=== PATIENT | female | born 1960 | race Caucasian/White ===

== ENCOUNTER 2017-05-20 13:31 | Emergency (ER) | payer OTHER ==
[~2017-05-20] VITALS: Ht 157.5 cm; Wt 64.5 kg
[~2017-05-20 13:31] MED LIST: ALBU1AER INH; BENT20TA PO; EFIN1SOL; ESCI5TAB PO; ESTR1TAB PO; GABA300C3 PO; HEPATITIS MED PO; HYDR-2768 PO; IPRAAER IN; LOTRCRE TOP; METO25CR PO; OMEP20TA PO; PROM25TA5 PO; RIFA550 PO; SERO100T PO; TEMA15CA PO; ULTR50TA PO; ZOLP10TA3 PO
[2017-05-20 13:35] VITALS: BP 108/63; PULSE 76; RESP 14; TEMP 98.2; O2SAT 95
[2017-05-20] MEDS ORDERED: METO50TA11 PO (13:54)
[2017-05-20] MEDS ORDERED: OMEP20TA PO (13:54)
[2017-05-20] MEDS ORDERED: QUET1TAB8 PO (13:54)
[2017-05-20] MEDS ORDERED: LORA-373 PO (13:54)
[2017-05-20] MEDS ORDERED: SERO25TA PO (13:54)
[2017-05-20] MEDS ORDERED: TRAM50TA PO (13:54)
[2017-05-20] MEDS ORDERED: MORP1TAB25 PO (13:54)
[2017-05-20] MEDS ORDERED: LISI2.5T3 PO (13:54)
[2017-05-20] MEDS ORDERED: HYDR25TA5 PO (13:54)
[2017-05-20] MEDS ORDERED: GABA600T PO (13:54)
[2017-05-20] MEDS ORDERED: XIFA550T4 PO (13:54)
[2017-05-20] MEDS ORDERED: ATOR10TA15 PO (13:54)
[2017-05-20] MEDS ORDERED: TEMA30CA PO (13:54)
[2017-05-20] MEDS ORDERED: ESCI20TA PO (13:54)
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
== END 2017-05-20 15:35 | disposition home or self-care (01) ==
LOC: PHEFT 13:31
DX: S16.1XXA Strain of muscle, fascia and tendon at neck level, initial encounter (principal); S39.012A Strain of muscle, fascia and tendon of lower back, initial encounter; G89.29 Other chronic pain; M79.7 Fibromyalgia; K74.60 Unspecified cirrhosis of liver; I10 Essential (primary) hypertension; E78.00 Pure hypercholesterolemia, unspecified; J44.9 Chronic obstructive pulmonary disease, unspecified; G47.30 Sleep apnea, unspecified; F17.210 Nicotine dependence, cigarettes, uncomplicated; V49.50XA Passenger injured in collision with unspecified motor vehicles in traffic accident, initial encounter; Y93.89 Activity, other specified; Y92.410 Unspecified street and highway as the place of occurrence of the external cause
CPT/HCPCS: 70450; 72110; 72125; 99285

== ENCOUNTER 2017-12-18 23:58 | Inpatient (IN) | payer OTHER, MEDICAID, MEDICARE ==
[~2017-12-18] VITALS: Ht 157.5 cm; Wt 81.7 kg
[~2017-12-18 23:58] MED LIST changes: -ALBU1AER INH; +ATOR10TA15 PO; -BENT20TA PO; -EFIN1SOL; +ESCI20TA PO; -ESCI5TAB PO; -ESTR1TAB PO; -GABA300C3 PO; +GABA600T PO; -HEPATITIS MED PO; -HYDR-2768 PO; +HYDR25TA5 PO; -IPRAAER IN; +LISI2.5T3 PO; +LORA0.5T PO; -LOTRCRE TOP; +METO1TAB9 PO; -METO25CR PO; +MORP1TAB25 PO; -OMEP20TA PO; +OMEP20TA93 PO; -PROM25TA5 PO; +QUET1TAB8 PO; -RIFA550 PO; -SERO100T PO; -TEMA15CA PO; +TEMA30CA PO; +TRAM50TA PO; -ULTR50TA PO; +XIFA550T4 PO; -ZOLP10TA3 PO
[2017-12-19] VITALS (18 sets, daily range): BP systolic 77–155; BP diastolic 45–76; PULSE 75–128; RESP 14–24; TEMP 97.6–103; O2SAT 91–98
[2017-12-19] MEDS ORDERED: LEVOFLOXACIN 750 MG PREMIX INJ 150 ML IV ONE (00:30)
[2017-12-19] MEDS ORDERED: SODIUM CHLOR 0.9% 1000 ML INJ 1,000 ML IV ONE ×2 (00:30→17:45)
[2017-12-19] MEDS ORDERED: ACETAMINOPHEN 650 MG SUPP RECTAL ONE (00:30)
[2017-12-19] MEDS ORDERED: NALOXONE HCL 0.4 MG/ML AMP IV PUSH ONE ×2 (00:45)
--- NOTE | 2017-12-19 00:53 | RADRPT ---
EXAM DATE/TIME: 12/19/2017 00:37 [facility] COMPARISON: CHEST SINGLE AP, May 09, 2015, 9:11. INDICATIONS : Shortness of breath, Weakness MEDICAL HISTORY : Hepatitis C. Chronic obstructive pulmonary disease. Cirrhosis. Fibromylagia, GERD SURGICAL HISTORY : Hysterectomy. Tubal ligation. ENCOUNTER: Initial ACUITY: 1 day PAIN SCORE: 8/10 LOCATION: Bilateral chest FINDINGS: The heart size is normal. The right hilar region appears prominent. The lungs appear otherwise clear. No effusion is seen. CONCLUSION: Prominence of the right hilar region. This could be from a right perihilar consolidation. This area c ould be more completely evaluated with a CT examination of the chest. Hermes Samuels MD on December 19, 2017 at 0:46 Board Certified Radiologist. This report was verified electronically.
[2017-12-19 00:59] LABS: AUTOMATED NEUTROPHIL # 2.9 TH/MM3 (1.8-7.7); BASOPHIL % 0.6 % (0.0-2.0); EOSINOPHIL % 0.3 % (0.0-4.0); HEMATOCRIT 36.6 % (35.0-46.0); HEMOGLOBIN 11.8 GM/DL (11.6-15.3); LYMPH % 9.1 % (9.0-44.0); LYMPHOCYTE # 0.3 TH/MM3 (1.0-4.8); MEAN CELL VOLUME 78.3 FL (80.0-100.0); MEAN CORPUSCULAR HEMOGLOBIN 25.3 PG (27.0-34.0); MEAN CORPUSCULAR HGB CONC 32.3 % (32.0-36.0); MEAN PLATELET VOLUME 8.5 FL (7.0-11.0); MONO % 1.6 % (0.0-8.0); MONOCYTE # 0.1 TH/MM3 (0-0.9); NEUT % 88.4 % (16.0-70.0); PLATELET COUNT 126 TH/MM3 (150-450); RED BLOOD COUNT 4.68 MIL/MM3 (4.00-5.30); RED CELL DISTRIBUTION WIDTH 15.5 % (11.6-17.2); WHITE BLOOD COUNT 3.3 TH/MM3 (4.0-11.0)
[2017-12-19 01:38] LABS: LACTIC ACID SEPSIS PROTOCOL 3.1 mmol/L (0.4-2.0)
[2017-12-19 01:43] LABS: ALBUMIN 3.7 GM/DL (3.4-5.0); ALT (GPT) 19 U/L (10-53); AST (GOT) 34 U/L (15-37); BICARBONATE 28.4 MEQ/L (21.0-32.0); BLOOD UREA NITROGEN 11 MG/DL (7-18); CHLORIDE 100 MEQ/L (98-107); CREATININE 0.95 MG/DL (0.50-1.00); GLOMERULAR FILTRATION RATE 61 ML/MIN (>89); GLUCOSE,RANDOM 98 MG/DL (74-106); LIPASE 66 U/L (73-393); SODIUM (NA) 136 MEQ/L (136-145)
[2017-12-19 01:46] LABS: ALKALINE PHOSPHATASE 77 U/L (45-117); TOTAL BILIRUBIN ADULT 0.3 MG/DL (0.2-1.0); TOTAL PROTEIN 7.1 GM/DL (6.4-8.2)
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
[2017-12-19] MEDS ORDERED: IBUPROFEN 600 MG TAB PO PRN (03:45)
[2017-12-19] MEDS ORDERED: Vancomycin Consult Pharmacy 1 EA OTHER SCH (03:45)
[2017-12-19] MEDS ORDERED: VANCOMYCIN 1 GM/200 ML INJ 200 ML IV SCH (03:45)
[2017-12-19] MEDS ORDERED: BISACODYL 10 MG SUPP RECTAL PRN (03:45)
[2017-12-19] MEDS ORDERED: SODIUM CHLORIDE 0.9% FLUSH 10 ML FLUSH IV FLUSH PRN (03:45)
[2017-12-19] MEDS ORDERED: MAGNESIUM HYDROXIDE SUSP 30 ML CUP PO PRN (03:45)
[2017-12-19] MEDS ORDERED: LACTULOSE SYRUP 20 GM/30 ML CUP PO PRN (03:45)
[2017-12-19] MEDS ORDERED: SENNOSIDES 8.6 MG TAB PO PRN (03:45)
[2017-12-19] MEDS ORDERED: NALOXONE HCL 0.4 MG/ML AMP IV PUSH PRN ×3 (03:45→17:45)
[2017-12-19] MEDS ORDERED: ONDANSETRON HCL 4 MG/2 ML VIAL IVP PRN (03:45)
[2017-12-19 04:10] LABS: BILIRUBIN, URINE NEG (NEG); BLOOD, URINE NEG (NEG); GLUCOSE,URINE NEG (NEG); HYALINE CAST, URINE 13 /lpf (RARE); KETONE, URINE NEG (NEG); MUCUS URINE FEW /lpf (OCC); NITRITE,URINE NEG (NEG); PH, URINE 6.5 (5.0-8.5); URINE COLOR YELLOW (YELLW/STRAW); URINE LEUKOCYTE ESTERASE NEG (NEG)
[2017-12-19] MEDS: SODIUM CHLOR 0.9% 1000 ML INJ 1,000 ML IV SCH ×3 (04:25→23:42)
[2017-12-19] MEDS: PIPERACIL-TAZO 4.5 GM PREMIX 100 ML IV SCH ×3 (04:26→18:00)
[2017-12-19] MEDS ORDERED: VANCOMYCIN 1,500 MG/NS 500 ML IV ONE ×2 (05:00)
[2017-12-19] MEDS: DOCUSATE SODIUM 50 MG/SENNA 8.6 MG TAB PO SCH ×2 (09:00→20:28)
[2017-12-19] MEDS: METOPROLOL SUCCINATE 50 MG EXTENDED RELEASE TAB PO SCH (09:00)
[2017-12-19] MEDS: SODIUM CHLORIDE 0.9% FLUSH 10 ML FLUSH IV FLUSH SCH ×2 (09:00→20:27)
[2017-12-19] MEDS ORDERED: LISINOPRIL 5 MG TAB PO SCH (09:00)
[2017-12-19] MEDS ORDERED: HYDROCHLOROTHIAZIDE 25 MG TAB PO SCH (09:00)
[2017-12-19] MEDS: ATORVASTATIN 10 MG TAB PO SCH (09:34)
[2017-12-19] MEDS: PANTOPRAZOLE SOD 20 MG DELAYED RELEASE TAB PO SCH (09:34)
[2017-12-19] MEDS: RIFAXIMIN 550 MG TAB PO SCH ×2 (09:34→20:25)
[2017-12-19] MEDS ORDERED: ASPIRIN EC 81 MG TABEC PO ONE (11:00)
--- NOTE | 2017-12-19 11:03 | HHI.HP ---
[facility] Laurent Rueda M.D. Admission Diagnosis Sepsis Diagnoses: Chief Complaint: Shortness of breath Travel History International Travel<30 Days: No Contact w/Intl Traveler <30 Da: No Traveled to Known Affected Are: No History of Present Illness Patient seen this morning around 9 AM. 57-year-old female with a history of hypertension, hyperlipidemia, COPD, tobacco use, cirrhosis, chronic back pain on opioids who presented obtunded last night, with some improvement with im Narcan. History is limited by somnolence. Patient reports a three-day history of shortness of breath, fever, constant, dull left-sided chest pain radiating to the left shoulder. He denies any nausea, vomiting. She says that multiple family members have similar illness over the past week. Review of Systems Except as stated in HPI: all other systems reviewed are Neg Past Family Social History Past Medical History Hypertension Hyperlipidemia Chronic obstructive pulmonary disease History tobacco use Cirrhosis of liver Questionable hepatitis C, patient states that test was negative Fibromyalgia Depression Past Surgical History Tonsillectomy Appendectomy Tubal ligation Total hysterectomy Back surgery Left knee surgery Reported Medications Reported Meds & Active Scripts Active Reported Morphine ER (Morphine Sulfate) 30 Mg Tab 30 Mg PO Q8H Lisinopril 2.5 Mg Tab 2.5 Mg PO DAILY Quetiapine (Quetiapine Fumarate) 100 Mg Tab 100 Mg PO HS Atorvastatin (Atorvastatin Calcium) 10 Mg Tab 10 Mg PO DAILY Escitalopram (Escitalopram Oxalate) 20 Mg Tab 20 Mg PO DAILY Gabapentin 600 Mg Tab 600 Mg PO TID Omeprazole 20 Mg Tab 20 Mg PO DAILY Hydrochlorothiazide 25 Mg Tab 25 Mg PO DAILY Tramadol (Tramadol HCl) 50 Mg Tab 50 Mg PO TID Lorazepam 0.5 Mg Tab 0.5 Mg PO BID PRN Temazepam 30 Mg Cap 30 Mg PO HS Metoprolol Succinate ER 24 HR (Metoprolol Succinate) 50 Mg Tab 50 Mg PO DAILY Xifaxan (Rifaximin) 550 Mg Tab 550 Mg PO Q12HR Allergies: Coded Allergies: Sulfa (Sulfonamide Antibiotics) (Unverified Allergy, Severe, Anaphylaxis, 12/19/17) ferrous fumarate (Unverified Allergy, Severe, Hives, vomiting, 12/19/17) ferrous sulfate (Unverified Allergy, Severe, Hives, vomiting, 12/19/17) ferumoxytol (Unverified Allergy, Severe, Hives, vomiting, 12/19/17) iron (Unverified Allergy, Severe, Hives, vomiting, 12/19/17) multivitamin infusion, adult no.4 with vitamin K (Unverified Allergy, Severe, Hives, vomiting, 12/19/17) multivitamin with iron,other minerals (Unverified Allergy, Severe, Hives, vomiting, 12/19/17) acetaminophen (Unverified Adverse Reaction, Severe, Has cirrhosis, 12/19/17 ) aspirin (Unverified Adverse Reaction, Severe, Has cirrhosis, 12/19/17) Family History Father is alive and an alcoholic. Mother asked away from unknown causes at age 82. Social History Chronic smoker. Patient is smoked 5-10 cigarettes a day since age 9. She denies drinking. Denies illicit drugs. Physical Exam Vital Signs Vital Signs Date Time Temp Pulse Resp B/P (MAP) Pulse Ox O2 Delivery O2 Flow Rate FiO2 12/19/17 10:56 75 18 104/51 (68) 98 Room Air 12/19/17 09:36 90 105/56 (72) 12/19/17 09:21 86 16 77/45 (56) 97 Room Air 12/19/17 08:06 97 Nasal Cannula 2.00 12/19/17 07:59 80 16 82/53 (63) 97 Nasal Cannula 2.00 12/19/17 04:18 91 Nasal Cannula 12/19/17 04:00 99.9 97 14 87/50 (62) 91 Nasal Cannula 2.00 12/19/17 03:00 100 14 99/52 (68) 92 Nasal Cannula 2.00 12/19/17 02:00 108 14 98/57 (71) 95 Nasal Cannula 2.00 12/19/17 01:30 108 15 98/52 (67) 93 Nasal Cannula 2.00 12/19/17 01:00 114 16 99/52 (68) 93 Nasal Cannula 2.00 12/19/17 00:30 103.0 128 24 105/54 (71) 94 Nasal Cannula 2.00 12/19/17 00:21 Nasal Cannula 12/19/17 00:21 98 Nasal Cannula 2.00 12/19/17 00:19 103.0 123 20 105/54 (71) 98 Physical Exam GENERAL: This is a well-nourished, well-developed patient. Somnolent, wakes up for exam. She is oriented 3. SKIN: No rashes, ecchymoses or lesions. Cool and dry. HEAD: Atraumatic. Normocephalic. No temporal or scalp tenderness. EYES: Pupils equal round and reactive. Extraocular motions intact. No scleral icterus. No injection or drainage. ENT: Nose without bleeding, purulent drainage or septal hematoma. Throat without erythema, tonsillar hypertrophy or exudate. Uvula midline. Airway patent. NECK: Trachea midline. No JVD or lymphadenopathy. Supple, nontender, no meningeal signs. CARDIOVASCULAR: Regular rate and rhythm without murmurs, gallops, or rubs. RESPIRATORY: Clear to auscultation. Breath sounds equal bilaterally. No wheezes , rales, or rhonchi. GASTROINTESTINAL: Abdomen soft, non-tender, nondistended. No hepato-splenomegaly , or palpable masses. No guarding. MUSCULOSKELETAL: Extremities without clubbing, cyanosis, or edema. No joint tenderness, effusion, or edema noted. No calf tenderness. Negative Homans sign bilaterally. NEUROLOGICAL: Awake and alert. Cranial nerves II through XII intact. Motor and sensory grossly within normal limits. Five out of 5 muscle strength in all muscle groups. Normal speech. Laboratory Laboratory Tests Test 12/19/17 00:10 12/19/17 02:40 12/19/17 03:30 12/19/17 09:12 White Blood Count 3.3 Red Blood Count 4.68 Hemoglobin 11.8 Hematocrit 36.6 Mean Corpuscular Volume 78.3 Mean Corpuscular Hemoglobin 25.3 Mean Corpuscular Hemoglobin Concent 32.3 Red Cell Distribution Width 15.5 Platelet Count 126 Mean Platelet Volume 8.5 Neutrophils (%) (Auto) 88.4 Lymphocytes (%) (Auto) 9.1 Monocytes (%) (Auto) 1.6 Eosinophils (%) (Auto) 0.3 Basophils (%) (Auto) 0.6 Neutrophils # (Auto) 2.9 Lymphocytes # (Auto) 0.3 Monocytes # (Auto) 0.1 Eosinophils # (Auto) 0.0 Basophils # (Auto) 0.0 CBC Comment DIFF FINAL Differential Comment Blood Urea Nitrogen 11 Creatinine 0.95 Random Glucose 98 Total Protein 7.1 Albumin 3.7 Calcium Level 8.0 Alkaline Phosphatase 77 Aspartate Amino Transf (AST/SGOT) 34 Alanine Aminotransferase (ALT/SGPT) 19 Total Bilirubin 0.3 Sodium Level 136 Potassium Level 3.2 Chloride Level 100 Carbon Dioxide Level 28.4 Anion Gap 8 Estimat Glomerular Filtration Rate 61 Lactic Acid Level 3.1 1.1 Lipase 66 Ammonia 12 Urine Color YELLOW Urine Turbidity CLEAR Urine pH 6.5 Urine Specific [place] 1.017 Urine Protein TRACE Urine Glucose (UA) NEG Urine Ketones NEG Urine Occult Blood NEG Urine Nitrite NEG Urine Bilirubin NEG Urine Urobilinogen 2.0 Urine Leukocyte Esterase NEG Urine RBC 5 Urine WBC 2 Urine Hyaline Casts 13 Urine Mucus FEW Microscopic Urinalysis Comment CATH-CULT NOT IND Urine Opiates Screen POS Urine Barbiturates Screen NEG Urine Amphetamines Screen NEG Urine Benzodiazepines Screen POS Urine Cocaine Screen NEG Urine Cannabinoids Screen NEG Blood Gas Puncture Site RT RADIAL Blood Gas Patient Temperature 98.6 Blood Gas HCO3 24 Blood Gas Base Excess -0.3 Blood Gas Oxygen Saturation 93 Arterial Blood pH 7.37 Arterial Blood Partial Pressure CO2 44 Arterial Blood Partial Pressure O2 71 Arterial Blood Oxygen Content 13.3 Arterial Blood Carboxyhemoglobin 1.5 Arterial Blood Methemoglobin 0.4 Blood Gas Hemoglobin 10.2 Oxygen Delivery Device NASAL CANNULA Blood Gas Liter Flow 2 Blood Gas Inspired Oxygen 28 Date/Time Source Procedure Growth Status 12/19/17 02:10 Blood Peripheral Aerobic Blood Culture Pending Received 12/19/17 02:10 Blood Peripheral Anaerobic Blood Culture Pending Received 12/19/17 05:45 Nasal Washing Influenza Types A,B Antigen (LISANDRO) - Final Positive For Flu A Antigen Complete Result Diagram: 12/19/17 0010 12/19/17 0010 Caprini VTE Risk Assessment Caprini VTE Risk Assessment: No/Low Risk (score <= 1) Caprini Risk Assessment Model Point Value = 1 Point Value = 2 Point Value = 3 Point Value = 5 Age 41-60 Minor surgery BMI > 25 kg/m2 Swollen legs Varicose veins or History of unexplained or recurrent spontaneous Oral contraceptives or hormone replacement Sepsis (< 1 month) Serious lung disease, including pneumonia (< 1 month) Abnormal pulmonary function Acute myocardial infarction Congestive heart failure (< 1 month) History of inflammatory bowel disease Medical patient at bed rest Age 61-74 Arthroscopic surgery Major open surgery (> 45 min) Laparoscopic surgery (> 45 min) Malignancy Confined to bed (> 72 hours) Immobilizing plaster cast Central venous access Age >= 75 History of VTE Family history of VTE Factor V Leiden Prothrombin 60011T Lupus anticoagulant Anticardiolipin antibodies Elevated serum homocysteine Heparin-induced thrombocytopenia Other congenital or acquired thrombophilia Stroke (< 1 month) Elective arthroplasty Hip, pelvis, or leg fracture Acute spinal cord injury (< 1 month) Prophylaxis Regimen Total Risk Factor Score Risk Level Prophylaxis Regimen 0-1 Low Early ambulation 2 Moderate Order ONE of the following: *Sequential Compression Device (SCD) *Heparin 5000 units SQ BID 3-4 Higher Order ONE of the following medications: *Heparin 5000 units SQ TID *Enoxaparin/Lovenox 40 mg SQ daily (WT < 150 kg, CrCl > 30 mL/min) *Enoxaparin/Lovenox 30 mg SQ daily (WT < 150 kg, CrCl > 10-29 mL/min) *Enoxaparin/Lovenox 30 mg SQ BID (WT < 150 kg, CrCl > 30 mL/min) AND/OR *Sequential Compression Device (SCD) 5 or more Highest Order ONE of the following medications: *Heparin 5000 units SQ TID (Preferred with Epidurals) *Enoxaparin/Lovenox 40 mg SQ daily (WT < 150 kg, CrCl > 30 mL/min) *Enoxaparin/Lovenox 30 mg SQ daily (WT < 150 kg, CrCl > 10-29 mL/min) *Enoxaparin/Lovenox 30 mg SQ BID (WT < 150 kg, CrCl > 30 mL/min) AND *Sequential Compression Device (SCD) Assessment and Plan Assessment and Plan //Septic shock on admission //Influenza pneumonia. //community Acquired pneumonia = Leukopenia 3.3, tachycardia in the 90s. Temperature 99.9. Systolic blood pressure in the 70s. = Lactate initially 3.1, however and has normalized. -Personally interpreted Hilar prominence on chest x-ray. -Continue broad-spectrum antibiotics due to concern of superinfection given patient's septic shock on admission.. Check BNP. Start Tamiflu. //Chest pain -Could be secondary to pneumonia is demand ischemia from influenza. She with allergy listed to aspirin but has received ibuprofen here without issue. Start aspirin.. We'll order EKGs and troponins. //Hypertension. //Hypotensive on admission. -Patient is been hypotensive with systolic blood pressures to waiting between the 70s-100 systolic.. We'll hold off on all blood pressure medications are now , restart as necessary. //History of liver cirrhosis. Check ammonia levelwithin normal limits. Continue home medications. //Tobacco use. Will discuss with patient when she is more receptive. = Prophylaxis. scds Physician Certification 2 Midnight Certification Type: Admission for Inpatient Services Order for Inpatient Services The services are ordered in accordance with Medicare regulations or non- Medicare payer requirements, as applicable. In the case of services not specified as inpatient-only, they are appropriately provided as inpatient services in accordance with the 2-midnight benchmark. Estimated LOS (days): 3 days is the estimated time the patient will need to remain in the hospital, assuming treatment plan goals are met and no additional complications. Post-Hospital Plan: Not yet determined Michael Mckeon MD Dec 19, 2017 11:03
[2017-12-19] MEDS: RESP: ALBUTEROL 2.5 MG/IPRATROPIUM 0.5 MG NEB (SCH) NEB ×3 (11:20→19:52)
[2017-12-19] MEDS: methylPREDNISolone SOD SUCC 40 MG/1 ML VIAL IV PUSH SCH ×2 (11:38→18:01)
[2017-12-19 11:53] LABS: INTERNATIONAL NORMALIZED RATIO 1.2 RATIO; PROTHROMBIN TIME - PATIENT 11.9 SEC (9.8-11.6)
[2017-12-19 12:14] LABS: MAGNESIUM 1.7 MG/DL (1.5-2.5)
[2017-12-19] MEDS: OSELTAMIVIR PHOSPHATE 6 MG/ML 60 ML SUSP PO SCH ×2 (13:55→20:27)
[2017-12-19] MEDS ORDERED: THIAMINE HCL 100 MG TAB PO ONE (17:45)
[2017-12-19] MEDS: VANCOMYCIN 1 GM/200 ML PREMIX IV SCH (19:04)
[2017-12-20] VITALS (7 sets, daily range): BP systolic 114–143; BP diastolic 66–84; PULSE 61–99; RESP 16–21; TEMP 97.4–98.4; O2SAT 94–97
[2017-12-20] MEDS: PIPERACIL-TAZO 4.5 GM PREMIX 100 ML IV SCH ×5 (00:22→22:09)
[2017-12-20] MEDS: methylPREDNISolone SOD SUCC 40 MG/1 ML VIAL IV PUSH SCH ×4 (00:23→17:51)
[2017-12-20] MEDS: VANCOMYCIN 1 GM/200 ML PREMIX IV SCH ×2 (05:34→17:51)
[2017-12-20] MEDS: RESP: ALBUTEROL 2.5 MG/IPRATROPIUM 0.5 MG NEB (SCH) NEB ×4 (05:43→22:03)
[2017-12-20] MEDS: RIFAXIMIN 550 MG TAB PO SCH ×2 (09:36→20:52)
[2017-12-20] MEDS: METOPROLOL SUCCINATE 50 MG EXTENDED RELEASE TAB PO SCH (09:36)
[2017-12-20] MEDS: DOCUSATE SODIUM 50 MG/SENNA 8.6 MG TAB PO SCH ×2 (09:36→20:52)
[2017-12-20] MEDS: ATORVASTATIN 10 MG TAB PO SCH (09:37)
[2017-12-20] MEDS: THIAMINE HCL 100 MG TAB PO SCH (09:37)
[2017-12-20] MEDS: PANTOPRAZOLE SOD 20 MG DELAYED RELEASE TAB PO SCH (09:37)
[2017-12-20] MEDS: ASPIRIN EC 81 MG TABEC PO SCH (09:37)
[2017-12-20] MEDS: SODIUM CHLORIDE 0.9% FLUSH 10 ML FLUSH IV FLUSH SCH ×2 (09:37→20:53)
[2017-12-20] MEDS: OSELTAMIVIR PHOSPHATE 6 MG/ML 60 ML SUSP PO SCH ×2 (09:38→20:53)
--- NOTE | 2017-12-20 10:10 | HHI.PR ---
Subjective Remarks 57-year-old female with a history of hypertension, hyperlipidemia, COPD, tobacco use, cirrhosis, chronic back pain on opioids who presented obtunded last night, with some improvement with im Narcan. History is limited by somnolence. Patient reports a three-day history of shortness of breath, fever, constant, dull left-sided chest pain radiating to the left shoulder. He denies any nausea, vomiting. She says that multiple family members have similar illness over the past week. [place] STATES HAS CHRONIC PAIN AND CHRONIC PSYCHIATRIC DISORDERS WANTS HER MEDICATIONS RESTARTED DW RN AND PT MORE ALERT TODAY RESTART HOME MEDICATION MUCINEX DUO NEBS INCENTIVE SPIROMETRY NICODERM ANXIETY MEDS Objective Vitals Vital Signs Date Time Temp Pulse Resp B/P (MAP) Pulse Ox O2 Delivery O2 Flow Rate FiO2 12/20/17 08:21 96 Nasal Cannula 2.00 12/20/17 08:04 98.0 99 21 143/80 (101) 94 12/20/17 04:00 97.4 79 16 114/70 (85) 97 12/20/17 00:00 97.5 87 16 115/66 (82) 97 12/19/17 20:00 Nasal Cannula 2.00 12/19/17 20:00 97.6 77 16 116/67 (83) 98 12/19/17 19:52 95 Nasal Cannula 2.00 12/19/17 18:57 Nasal Cannula 2.00 12/19/17 16:01 97.8 96 22 102/58 (73) 95 12/19/17 16:00 Nasal Cannula 2.00 12/19/17 12:51 12/19/17 12:04 88 155/76 (102) 12/19/17 11:39 88 83/48 (60) 12/19/17 10:56 75 18 104/51 (68) 98 Room Air I/O 12/19/17 12/19/17 12/19/17 12/20/17 12/20/17 12/20/17 07:00 15:00 23:00 07:00 15:00 23:00 Intake Total 1150 ml 350 ml 240 ml 1038 ml Output Total 2750 ml 900 ml Balance 1150 ml 350 ml -2510 ml 138 ml Intake Oral 240 ml IV Total 1150 ml 350 ml 1038 ml Output Urine Total 2750 ml 900 ml # Voids 4 # Bowel Movements 0 1 Result Diagram: 12/19/17 0010 12/19/17 0010 Other Results Laboratory Tests Test 12/19/17 00:10 12/19/17 02:40 12/19/17 03:30 12/19/17 09:12 White Blood Count 3.3 TH/MM3 Red Blood Count 4.68 MIL/MM3 Hemoglobin 11.8 GM/DL Hematocrit 36.6 % Mean Corpuscular Volume 78.3 FL Mean Corpuscular Hemoglobin 25.3 PG Mean Corpuscular Hemoglobin Concent 32.3 % Red Cell Distribution Width 15.5 % Platelet Count 126 TH/MM3 Mean Platelet Volume 8.5 FL Neutrophils (%) (Auto) 88.4 % Lymphocytes (%) (Auto) 9.1 % Monocytes (%) (Auto) 1.6 % Eosinophils (%) (Auto) 0.3 % Basophils (%) (Auto) 0.6 % Neutrophils # (Auto) 2.9 TH/MM3 Lymphocytes # (Auto) 0.3 TH/MM3 Monocytes # (Auto) 0.1 TH/MM3 Eosinophils # (Auto) 0.0 TH/MM3 Basophils # (Auto) 0.0 TH/MM3 CBC Comment DIFF FINAL Differential Comment Blood Urea Nitrogen 11 MG/DL Creatinine 0.95 MG/DL Random Glucose 98 MG/DL Total Protein 7.1 GM/DL Albumin 3.7 GM/DL Calcium Level 8.0 MG/DL Alkaline Phosphatase 77 U/L Aspartate Amino Transf (AST/SGOT) 34 U/L Alanine Aminotransferase (ALT/SGPT) 19 U/L Total Bilirubin 0.3 MG/DL Sodium Level 136 MEQ/L Potassium Level 3.2 MEQ/L Chloride Level 100 MEQ/L Carbon Dioxide Level 28.4 MEQ/L Anion Gap 8 MEQ/L Estimat Glomerular Filtration Rate 61 ML/MIN Lactic Acid Level 3.1 mmol/L 1.1 mmol/L B-Type Natriuretic Peptide 20 PG/ML Lipase 66 U/L Ammonia 12 MCMOL/L Urine Color YELLOW Urine Turbidity CLEAR Urine pH 6.5 Urine Specific [place] 1.017 Urine Protein TRACE mg/dL Urine Glucose (UA) NEG mg/dL Urine Ketones NEG mg/dL Urine Occult Blood NEG Urine Nitrite NEG Urine Bilirubin NEG Urine Urobilinogen 2.0 MG/DL Urine Leukocyte Esterase NEG Urine RBC 5 /hpf Urine WBC 2 /hpf Urine Hyaline Casts 13 /lpf Urine Mucus FEW /lpf Microscopic Urinalysis Comment CATH-CULT NOT IND Urine Opiates Screen POS Urine Barbiturates Screen NEG Urine Amphetamines Screen NEG Urine Benzodiazepines Screen POS Urine Cocaine Screen NEG Urine Cannabinoids Screen NEG Blood Gas Puncture Site RT RADIAL Blood Gas Patient Temperature 98.6 Blood Gas HCO3 24 mmol/L Blood Gas Base Excess -0.3 mmol/L Blood Gas Oxygen Saturation 93 % Arterial Blood pH 7.37 Arterial Blood Partial Pressure CO2 44 mmHg Arterial Blood Partial Pressure O2 71 mmHG Arterial Blood Oxygen Content 13.3 Vol % Arterial Blood Carboxyhemoglobin 1.5 % Arterial Blood Methemoglobin 0.4 % Blood Gas Hemoglobin 10.2 G/DL Oxygen Delivery Device NASAL CANNULA Blood Gas Liter Flow 2 L/M Blood Gas Inspired Oxygen 28 % Test 12/19/17 11:13 12/19/17 18:58 12/20/17 00:18 Prothrombin Time 11.9 SEC Prothromb Time International Ratio 1.2 RATIO Magnesium Level 1.7 MG/DL Ammonia 20 MCMOL/L Troponin I LESS THAN 0.02 NG/ML LESS THAN 0.02 NG/ML LESS THAN 0.02 NG/ML Thyroid Stimulating Hormone 3rd Gen 0.204 uIU/ML Random Cortisol 11.5 MCG/DL Imaging Last Impressions Chest X-Ray 12/19/17 0016 Signed Impressions: Service Date/Time: Tuesday, December 19, 2017 00:37 - CONCLUSION: Prominence of the right hilar region. This could be from a right perihilar consolidation. This area could be more completely evaluated with a CT examination of the chest. Hermes Samuels MD Objective Remarks GENERAL: Awake alert oriented talkative and cooperative SKIN: Warm and dry. HEAD: Atraumatic. Normocephalic. EYES: Pupils equal and round. No scleral icterus. No injection or drainage. Extractor muscles intact ENT: No nasal bleeding or discharge. Mucous membranes pink and moist. Tongue is midline NECK: Trachea midline. No JVD. Supple CARDIOVASCULAR: Regular rate and rhythm. S1 and S2 no S3 or S4 no heave or thrill or rub or gallop RESPIRATORY: No accessory muscle use. Clear to auscultation. Breath sounds equal bilaterally. GASTROINTESTINAL: Abdomen soft, non-tender, nondistended. Hepatic and splenic margins not palpable. MUSCULOSKELETAL: Extremities without clubbing, cyanosis, or edema. No obvious deformities. NEUROLOGICAL: Awake and alert. No obvious cranial nerve deficits. Motor grossly within normal limits. 4 out of 5 muscle strength in the arms and legs. Normal speech. PSYCHIATRIC: Appropriate mood and affect; insight and judgment ABnormal. Procedures None Medications and IVs Current Medications Acetaminophen (Tylenol Supp) 650 mg ONCE ONCE RECTAL Last administered on 12/19 02:53; Start 12/19/17 at 00:30; Stop 12/19/17 at 00:31; Status DC Levofloxacin/ Dextrose 150 ml @ 100 mls/hr ONCE ONCE IV Last administered on 12/19/17at 01:09; Start 12/19/17 at 00:30; Stop 12/19/17 at 01:59; Status DC Sodium Chloride 1,000 ml @ 999 mls/hr BOLUS ONCE IV Last administered on 12/19at 01:09; Start 12/19/17 at 00:30; Stop 12/19/17 at 01:30; Status DC Naloxone HCl (Narcan Inj) 0.4 mg ONCE ONCE IV PUSH ; Start 12/19/17 at 00:45; Stop 12/19/17 at 00:46; Status DC Naloxone HCl (Narcan Inj) 0.4 mg ONCE ONCE IV PUSH ; Start 12/19/17 at 00:45; Stop 12/19/17 at 00:46; Status DC Sodium Chloride 1,000 ml @ 100 mls/hr Q10H IV Last administered on 12/19/17at 13:53; Start 12/19/17 at 03:42 Sodium Chloride (NS Flush) 2 ml UNSCH PRN IV FLUSH FLUSH AFTER USING IV ACCESS ; Start 12/19/17 at 03:45 Sodium Chloride (NS Flush) 2 ml BID IV FLUSH Last administered on 12/20/17at 09: 37; Start 12/19/17 at 09:00 Ondansetron HCl (Zofran Inj) 4 mg Q6H PRN IVP NAUSEA OR VOMITING Last administered on 12/20/17at 09:36; Start 12/19/17 at 03:45 Naloxone HCl (Narcan Inj) 0.4 mg UNSCH PRN IV PUSH SEE LABEL COMMENTS; Start at 03:45 Senna/Docusate Sodium (Savanah-Colace) 1 tab BID PO Last administered on at 09:36; Start 12/19/17 at 09:00 Magnesium Hydroxide (Milk Of Magnesia Liq) 30 ml Q12H PRN PO Mild constipation ; Start 12/19/17 at 03:45 Sennosides (Senokot) 17.2 mg Q12H PRN PO Moderate constipation; Start 12/19/17 at 03:45 Bisacodyl (Dulcolax Supp) 10 mg DAILY PRN RECTAL SEVERE CONSITIPATION; Start at 03:45 Lactulose (Lactulose Liq) 30 ml DAILY PRN PO SEVERE CONSITIPATION; Start at 03:45 Pharmacy Profile Note 0 ml @ 0 mls/hr UNSCH OTHER ; Start 12/19/17 at 03:45 Vancomycin/Sodium Chloride 200 ml @ 200 mls/hr Q12H IV ; Start 12/19/17 at 03: 45; Status UNV Piperacillin Sod/ Tazobactam Sod 100 ml @ 200 mls/hr Q6H IV Last administered on 12/20/17at 09:37; Start 12/19/17 at 04:00 Ibuprofen (Motrin) 600 mg Q8H PRN PO Pain/Fever Last administered on 12/19/17at 09:35; Start 12/19/17 at 03:45; Stop 12/19/17 at 10:59; Status DC Atorvastatin Calcium (Lipitor) 10 mg DAILY PO Last administered on 12/20/17at 09 :37; Start 12/19/17 at 09:00 Hydrochlorothiazide (Hydrodiuril) 25 mg DAILY PO ; Start 12/19/17 at 09:00; Stop 12/19/17 at 09:00; Status DC Metoprolol Succinate (Toprol Xl) 50 mg DAILY PO Last administered on 12/20/17at 09:36; Start 12/19/17 at 09:00 Rifaximin (Xifaxan) 550 mg Q12HR PO Last administered on 12/20/17at 09:36; Start 12/19/17 at 09:00 Lisinopril (Prinivil) 2.5 mg DAILY PO ; Start 12/19/17 at 09:00; Stop 12/19/17 at 09:00; Status DC Pantoprazole Sodium (Protonix) 20 mg DAILY PO Last administered on 12/20/17at 09 :37; Start 12/19/17 at 09:00 Vancomycin HCl 1500 mg/Sodium Chloride 515 ml @ 257.5 mls/ hr ONCE ONCE IV Last administered on 12/19/17at 06:45; Start 12/19/17 at 05:00; Stop 12/19/17 at 06:59; Status DC Oseltamivir Phosphate (Tamiflu Liq) 75 mg BID PO Last administered on at 09:38; Start 12/19/17 at 12:00 Aspirin (Ecotrin Ec) 81 mg ONCE ONCE PO Last administered on 12/19/17at 11:38; Start 12/19/17 at 11:00; Stop 12/19/17 at 11:03; Status DC Aspirin (Ecotrin Ec) 81 mg DAILY PO Last administered on 12/20/17at 09:37; Start 12/20/17 at 09:00 Vancomycin/Sodium Chloride 200 ml @ 200 mls/hr Q12H IV Last administered on at 05:34; Start 12/19/17 at 18:00 Miscellaneous Information SPECIFIC LAB TO BE DRAWN:VANCOMYCIN TROUGH DATE TO... ONCE ONCE .XX ; Start 12/21/17 at 05:45; Stop 12/21/17 at 05:46 Naloxone HCl (Narcan Inj) 0.4 mg UNSCH X1 PRN IV PUSH RESP DEPRESSION OR HYPOTENSION Last administered on 12/19/17at 11:39; Start 12/19/17 at 11:15; Stop 12/22/17 at 11:14 Albuterol/ Ipratropium (Duoneb Neb) 1 ampule Q6HR NEB NEB Last administered on 12/20/17at 08:21; Start 12/19/17 at 11:15 Methylprednisolone Sodium Succinate (SoluMEDROL INJ) 40 mg Q6HR IV PUSH Last administered on 12/20/17at 05:34; Start 12/19/17 at 12:00 Thiamine HCl (Vitamin B1) 500 mg ONCE ONCE PO Last administered on 12/19/17at 19:04; Start 12/19/17 at 17:45; Stop 12/19/17 at 18:17; Status DC Thiamine HCl (Vitamin B1) 100 mg DAILY PO Last administered on 12/20/17at 09:37 ; Start 12/20/17 at 09:00 Oxycodone HCl (Roxicodone) 5 mg Q4H PRN PO PAIN SCALE 3 TO 5 Last administered on 12/20/17at 09:35; Start 12/19/17 at 17:45 Naloxone HCl (Narcan Inj) 0.4 mg UNSCH PRN IV PUSH SEE LABEL COMMENTS; Start at 17:45 Oxycodone HCl (Roxicodone) 10 mg Q4H PRN PO PAIN SCALE 6 TO 10; Start 12/19/17 at 17:45 Sodium Chloride 1,000 ml @ 999 mls/hr BOLUS ONCE IV Last administered on 12/19at 18:47; Start 12/19/17 at 17:45; Stop 12/19/17 at 18:45; Status DC A/P Assessment and Plan //Septic shock on admission //Influenza pneumonia. //community Acquired pneumonia = Leukopenia 3.3, tachycardia in the 90s. Temperature 99.9. Systolic blood pressure in the 70s. = Lactate initially 3.1, however and has normalized. -Personally interpreted Hilar prominence on chest x-ray. -Continue broad-spectrum antibiotics due to concern of superinfection given patient's septic shock on admission.. Check BNP. Start Tamiflu. //Chest pain -Could be secondary to pneumonia is demand ischemia from influenza. She with allergy listed to aspirin but has received ibuprofen here without issue. Start aspirin.. We'll order EKGs and troponins. //Hypertension. //Hypotensive on admission. -Patient is been hypotensive with systolic blood pressures to waiting between the 70s-100 systolic..-IMPROVED- RESTART BLOOD PRESSURE MEDS //History of liver cirrhosis. Check ammonia level within normal limits. Continue home medications. //Tobacco use. Will discuss with patient when she is more receptive.- NICODERM PSYCHIATRIC DISORDER- RESTART HOME MEDS CHRONIC PAIN- RESTART HOME MEDS = Prophylaxis. scds Discharge Planning PENDING IMPROVEMENT NEXT 24-48 HOURS Raymundo Rodríguez DO Dec 20, 2017 10:10
[2017-12-20] MEDS ORDERED: RESP: ALBUTEROL 2.5 MG/IPRATROPIUM 0.5 MG NEB (PRN) NEB (10:15)
[2017-12-20] MEDS ORDERED: NICOTINE 14 MG/24 HR PATCH T-DERMAL ONE (11:00)
[2017-12-20] MEDS ORDERED: POTASSIUM CHLORIDE 20 MEQ CONTROLLED RELEASE TAB PO ONE ×2 (11:00→12:45)
[2017-12-20 11:15] LABS: AUTOMATED NEUTROPHIL # 7.5 TH/MM3 (1.8-7.7); HEMOGLOBIN 10.4 GM/DL (11.6-15.3); LYMPH % 4.5 % (9.0-44.0); LYMPHOCYTE # 0.4 TH/MM3 (1.0-4.8); MEAN CELL VOLUME 77.6 FL (80.0-100.0); MEAN CORPUSCULAR HEMOGLOBIN 25.2 PG (27.0-34.0); MEAN CORPUSCULAR HGB CONC 32.5 % (32.0-36.0); MEAN PLATELET VOLUME 8.3 FL (7.0-11.0); MONO % 2.5 % (0.0-8.0); MONOCYTE # 0.2 TH/MM3 (0-0.9); PLATELET COUNT 152 TH/MM3 (150-450); RED BLOOD COUNT 4.13 MIL/MM3 (4.00-5.30); RED CELL DISTRIBUTION WIDTH 15.6 % (11.6-17.2)
[2017-12-20 11:39] LABS: BICARBONATE 23.4 MEQ/L (21.0-32.0); CALCIUM 7.3 MG/DL (8.5-10.1); CREATININE 0.96 MG/DL (0.50-1.00)
[2017-12-20 11:53] LABS: CALCIUM-PROTEIN CORRECTED 7.9 MG/DL (8.5-10.1)
[2017-12-20] MEDS: ESCITALOPRAM OXALATE 20 MG TAB PO SCH (12:01)
[2017-12-20] MEDS: traMADol HCL 50 MG TAB PO SCH ×2 (12:02→17:50)
[2017-12-20] MEDS: MORPHINE SULFATE 30 MG CONTROLLED RELEASE TAB PO SCH ×2 (12:02→20:52)
[2017-12-20] MEDS: GABAPENTIN 300 MG CAP PO SCH ×2 (12:02→17:50)
[2017-12-20] MEDS: guaiFENesin E.R. 600 MG TAB PO SCH ×2 (12:03→20:52)
[2017-12-20] MEDS: LORazepam 0.5 MG TAB PO PRN (12:12)
--- NOTE | 2017-12-20 13:33 | EKG ---
Date Performed: 12/19/2017 Time Performed: 17:08:36 PTAGE: 57 years EKG: Sinus rhythm WITH SINUS ARRHYTHMIA Since the prior tracing, there has been no significant change NORMAL ECG PREVIOUS TRACING : 12/19/2017 12.00 DOCTOR: Randall Cardoso Interpretating Date/Time 12/20/2017 13:32:17
--- NOTE | 2017-12-20 13:33 | EKG ---
Date Performed: 12/19/2017 Time Performed: 22:18:18 PTAGE: 57 years EKG: Sinus rhythm Since the prior tracing, there has been no significant change NORMAL ECG PREVIOUS TRACING : 12/19/2017 17.08 DOCTOR: Randall Cardoso Interpretating Date/Time 12/20/2017 13:32:07
--- NOTE | 2017-12-20 13:34 | EKG ---
Date Performed: 12/19/2017 Time Performed: 12:00:44 PTAGE: 57 years EKG: SINUS TACHYCARDIA Since the prior tracing, there has been no significant change ABNORMAL [facility] ECG PREVIOUS TRACING : 09/16/2014 @ 0820 DOCTOR: Randall Cardoso Interpretating Date/Time 12/20/2017 13:32:40
[2017-12-20] MEDS: LACTOBACILLUS ACIDOPHILUS TAB PO SCH (17:50)
[2017-12-20] MEDS: TEMAZEPAM 15 MG CAP PO SCH (20:52)
[2017-12-20] MEDS: QUEtiapine FUMARATE 100 MG TAB PO SCH (20:52)
[2017-12-21] VITALS (10 sets, daily range): BP systolic 113–148; BP diastolic 66–89; PULSE 78–100; RESP 18–20; TEMP 97.7–98.6; O2SAT 91–97
[2017-12-21] MEDS: LORazepam 0.5 MG TAB PO PRN ×2 (00:24→13:11)
[2017-12-21] MEDS: methylPREDNISolone SOD SUCC 40 MG/1 ML VIAL IV PUSH SCH ×4 (00:27→17:44)
[2017-12-21] MEDS: MORPHINE SULFATE 30 MG CONTROLLED RELEASE TAB PO SCH ×3 (04:11→20:20)
[2017-12-21] MEDS: PIPERACIL-TAZO 4.5 GM PREMIX 100 ML IV SCH ×4 (04:11→22:05)
[2017-12-21] MEDS: RESP: ALBUTEROL 2.5 MG/IPRATROPIUM 0.5 MG NEB (SCH) NEB ×4 (04:34→20:01)
[2017-12-21] MEDS ORDERED: PHARMACY ORDERED LAB ONE (05:45)
[2017-12-21] MEDS: VANCOMYCIN 1 GM/200 ML PREMIX IV SCH (05:49)
[2017-12-21 06:54] LABS: AUTOMATED NEUTROPHIL # 7.7 TH/MM3 (1.8-7.7); BASOPHIL % 0.1 % (0.0-2.0); HEMATOCRIT 30.3 % (35.0-46.0); HEMOGLOBIN 9.8 GM/DL (11.6-15.3); LYMPH % 5.5 % (9.0-44.0); LYMPHOCYTE # 0.5 TH/MM3 (1.0-4.8); MEAN CELL VOLUME 77.4 FL (80.0-100.0); MEAN CORPUSCULAR HEMOGLOBIN 25.1 PG (27.0-34.0); MEAN CORPUSCULAR HGB CONC 32.4 % (32.0-36.0); MEAN PLATELET VOLUME 8.8 FL (7.0-11.0); MONO % 2.7 % (0.0-8.0); MONOCYTE # 0.2 TH/MM3 (0-0.9); NEUT % 91.7 % (16.0-70.0); PLATELET COUNT 159 TH/MM3 (150-450); RED BLOOD COUNT 3.92 MIL/MM3 (4.00-5.30); RED CELL DISTRIBUTION WIDTH 15.9 % (11.6-17.2); WHITE BLOOD COUNT 8.4 TH/MM3 (4.0-11.0)
[2017-12-21 07:54] LABS: ALBUMIN 2.8 GM/DL (3.4-5.0); ALKALINE PHOSPHATASE 51 U/L (45-117); ALT (GPT) 16 U/L (10-53); AST (GOT) 19 U/L (15-37); BICARBONATE 26.1 MEQ/L (21.0-32.0); BLOOD UREA NITROGEN 16 MG/DL (7-18); CALCIUM 7.2 MG/DL (8.5-10.1); CALCIUM-PROTEIN CORRECTED 7.7 MG/DL (8.5-10.1); CHLORIDE 111 MEQ/L (98-107); CREATININE 0.68 MG/DL (0.50-1.00); FREE T4 1.09 NG/DL (0.76-1.46); GLOMERULAR FILTRATION RATE 89 ML/MIN (>89); GLUCOSE,RANDOM 131 MG/DL (74-106); MAGNESIUM 2.2 MG/DL (1.5-2.5); SODIUM (NA) 143 MEQ/L (136-145); TOTAL BILIRUBIN ADULT 0.2 MG/DL (0.2-1.0); TOTAL PROTEIN 6.1 GM/DL (6.4-8.2)
[2017-12-21] MEDS: DOCUSATE SODIUM 50 MG/SENNA 8.6 MG TAB PO SCH ×2 (09:00→20:19)
[2017-12-21] MEDS: OSELTAMIVIR PHOSPHATE 6 MG/ML 60 ML SUSP PO SCH ×2 (09:30→20:20)
[2017-12-21] MEDS: NICOTINE 14 MG/24 HR PATCH T-DERMAL SCH (09:31)
[2017-12-21] MEDS: guaiFENesin E.R. 600 MG TAB PO SCH ×2 (09:31→20:19)
[2017-12-21] MEDS: REMOVE OLD PATCH T-DERMAL SCH (09:31)
[2017-12-21] MEDS: METOPROLOL SUCCINATE 50 MG EXTENDED RELEASE TAB PO SCH (09:32)
[2017-12-21] MEDS: ESCITALOPRAM OXALATE 20 MG TAB PO SCH (09:32)
[2017-12-21] MEDS: THIAMINE HCL 100 MG TAB PO SCH (09:32)
[2017-12-21] MEDS: LACTOBACILLUS ACIDOPHILUS TAB PO SCH ×3 (09:32→17:43)
[2017-12-21] MEDS: traMADol HCL 50 MG TAB PO SCH ×3 (09:32→17:44)
[2017-12-21] MEDS: ASPIRIN EC 81 MG TABEC PO SCH (09:32)
[2017-12-21] MEDS: SODIUM CHLORIDE 0.9% FLUSH 10 ML FLUSH IV FLUSH SCH ×2 (09:33→20:21)
[2017-12-21] MEDS: GABAPENTIN 300 MG CAP PO SCH ×3 (09:33→17:43)
[2017-12-21] MEDS: PANTOPRAZOLE SOD 20 MG DELAYED RELEASE TAB PO SCH (09:33)
[2017-12-21] MEDS: ATORVASTATIN 10 MG TAB PO SCH (09:33)
[2017-12-21] MEDS: RIFAXIMIN 550 MG TAB PO SCH ×2 (09:33→20:20)
--- NOTE | 2017-12-21 10:43 | HHI.PR ---
Subjective Remarks 57-year-old female with a history of hypertension, hyperlipidemia, COPD, tobacco use, cirrhosis, chronic back pain on opioids who presented obtunded last night, with some improvement with im Narcan. History is limited by somnolence. Patient reports a three-day history of shortness of breath, fever, constant, dull left-sided chest pain radiating to the left shoulder. He denies any nausea, vomiting. She says that multiple family members have similar illness over the past week. 12-20 STATES HAS CHRONIC PAIN AND CHRONIC PSYCHIATRIC DISORDERS WANTS HER MEDICATIONS RESTARTED FELICE RN AND PT MORE ALERT TODAY RESTART HOME MEDICATION MUCINEX DUO NEBS INCENTIVE SPIROMETRY NICODERM ANXIETY MEDS 12-21 STILL VERY LETHARGIC-SUSPECT DUE TO HER CHRONIC MEDICATIONS INCREASE ACTIVITY HOPEFULLY HOME TOMORROW UNLESS CULTURES COME BACK INTERESTING DW RN AND PT LESS COUGH Objective Vitals Vital Signs Date Time Temp Pulse Resp B/P (MAP) Pulse Ox O2 Delivery O2 Flow Rate FiO2 12/21/17 09:13 94 Nasal Cannula 1.00 12/21/17 08:04 98.2 100 20 139/85 (103) 93 12/21/17 04:37 97 Nasal Cannula 2.00 12/21/17 04:00 Nasal Cannula 2.00 12/21/17 04:00 97.7 82 18 148/88 (108) 91 12/21/17 00:00 97.9 88 18 125/74 (91) 94 12/21/17 00:00 Nasal Cannula 2.00 12/20/17 20:00 98.4 83 18 142/84 (103) 94 12/20/17 20:00 Room Air 12/20/17 16:03 98.3 61 20 129/79 (96) 96 12/20/17 12:04 98.0 86 20 135/70 (91) 96 I/O 12/20/17 12/20/17 12/20/17 12/21/17 12/21/17 12/21/17 07:00 15:00 23:00 07:00 15:00 23:00 Intake Total 1038 ml 100 ml 1040 ml 100 ml Output Total 900 ml Balance 138 ml 100 ml 1040 ml 100 ml Intake Oral 240 ml IV Total 1038 ml 100 ml 800 ml 100 ml Output Urine Total 900 ml # Voids 4 3 1 # Bowel Movements 1 3 Result Diagram: 12/21/17 0545 12/21/17 0545 Other Results Laboratory Tests Test 12/19/17 00:10 12/19/17 02:40 12/19/17 03:30 12/19/17 09:12 White Blood Count 3.3 TH/MM3 Red Blood Count 4.68 MIL/MM3 Hemoglobin 11.8 GM/DL Hematocrit 36.6 % Mean Corpuscular Volume 78.3 FL Mean Corpuscular Hemoglobin 25.3 PG Mean Corpuscular Hemoglobin Concent 32.3 % Red Cell Distribution Width 15.5 % Platelet Count 126 TH/MM3 Mean Platelet Volume 8.5 FL Neutrophils (%) (Auto) 88.4 % Lymphocytes (%) (Auto) 9.1 % Monocytes (%) (Auto) 1.6 % Eosinophils (%) (Auto) 0.3 % Basophils (%) (Auto) 0.6 % Neutrophils # (Auto) 2.9 TH/MM3 Lymphocytes # (Auto) 0.3 TH/MM3 Monocytes # (Auto) 0.1 TH/MM3 Eosinophils # (Auto) 0.0 TH/MM3 Basophils # (Auto) 0.0 TH/MM3 CBC Comment DIFF FINAL Differential Comment Blood Urea Nitrogen 11 MG/DL Creatinine 0.95 MG/DL Random Glucose 98 MG/DL Total Protein 7.1 GM/DL Albumin 3.7 GM/DL Calcium Level 8.0 MG/DL Alkaline Phosphatase 77 U/L Aspartate Amino Transf (AST/SGOT) 34 U/L Alanine Aminotransferase (ALT/SGPT) 19 U/L Total Bilirubin 0.3 MG/DL Sodium Level 136 MEQ/L Potassium Level 3.2 MEQ/L Chloride Level 100 MEQ/L Carbon Dioxide Level 28.4 MEQ/L Anion Gap 8 MEQ/L Estimat Glomerular Filtration Rate 61 ML/MIN Lactic Acid Level 3.1 mmol/L 1.1 mmol/L B-Type Natriuretic Peptide 20 PG/ML Lipase 66 U/L Ammonia 12 MCMOL/L Urine Color YELLOW Urine Turbidity CLEAR Urine pH 6.5 Urine Specific [place] 1.017 Urine Protein TRACE mg/dL Urine Glucose (UA) NEG mg/dL Urine Ketones NEG mg/dL Urine Occult Blood NEG Urine Nitrite NEG Urine Bilirubin NEG Urine Urobilinogen 2.0 MG/DL Urine Leukocyte Esterase NEG Urine RBC 5 /hpf Urine WBC 2 /hpf Urine Hyaline Casts 13 /lpf Urine Mucus FEW /lpf Microscopic Urinalysis Comment CATH-CULT NOT IND Urine Opiates Screen POS Urine Barbiturates Screen NEG Urine Amphetamines Screen NEG Urine Benzodiazepines Screen POS Urine Cocaine Screen NEG Urine Cannabinoids Screen NEG Blood Gas Puncture Site RT RADIAL Blood Gas Patient Temperature 98.6 Blood Gas HCO3 24 mmol/L Blood Gas Base Excess -0.3 mmol/L Blood Gas Oxygen Saturation 93 % Arterial Blood pH 7.37 Arterial Blood Partial Pressure CO2 44 mmHg Arterial Blood Partial Pressure O2 71 mmHG Arterial Blood Oxygen Content 13.3 Vol % Arterial Blood Carboxyhemoglobin 1.5 % Arterial Blood Methemoglobin 0.4 % Blood Gas Hemoglobin 10.2 G/DL Oxygen Delivery Device NASAL CANNULA Blood Gas Liter Flow 2 L/M Blood Gas Inspired Oxygen 28 % Test 12/19/17 11:13 12/19/17 18:58 12/20/17 00:18 12/20/17 10:50 Prothrombin Time 11.9 SEC Prothromb Time International Ratio 1.2 RATIO Magnesium Level 1.7 MG/DL Ammonia 20 MCMOL/L Troponin I LESS THAN 0.02 NG/ML LESS THAN 0.02 NG/ML LESS THAN 0.02 NG/ML Thyroid Stimulating Hormone 3rd Gen 0.204 uIU/ML Random Cortisol 11.5 MCG/DL White Blood Count 8.0 TH/MM3 Red Blood Count 4.13 MIL/MM3 Hemoglobin 10.4 GM/DL Hematocrit 32.0 % Mean Corpuscular Volume 77.6 FL Mean Corpuscular Hemoglobin 25.2 PG Mean Corpuscular Hemoglobin Concent 32.5 % Red Cell Distribution Width 15.6 % Platelet Count 152 TH/MM3 Mean Platelet Volume 8.3 FL Neutrophils (%) (Auto) 93.0 % Lymphocytes (%) (Auto) 4.5 % Monocytes (%) (Auto) 2.5 % Eosinophils (%) (Auto) 0.0 % Basophils (%) (Auto) 0.0 % Neutrophils # (Auto) 7.5 TH/MM3 Lymphocytes # (Auto) 0.4 TH/MM3 Monocytes # (Auto) 0.2 TH/MM3 Eosinophils # (Auto) 0.0 TH/MM3 Basophils # (Auto) 0.0 TH/MM3 CBC Comment DIFF FINAL Differential Comment Blood Urea Nitrogen 10 MG/DL Creatinine 0.96 MG/DL Random Glucose 148 MG/DL Total Protein 6.0 GM/DL Calcium Level 7.3 MG/DL Sodium Level 142 MEQ/L Potassium Level 2.9 MEQ/L Chloride Level 107 MEQ/L Carbon Dioxide Level 23.4 MEQ/L Anion Gap 12 MEQ/L Estimat Glomerular Filtration Rate 60 ML/MIN Lactic Acid Level 3.6 mmol/L Protein Corrected Calcium 7.9 MG/DL Test 12/21/17 05:45 White Blood Count 8.4 TH/MM3 Red Blood Count 3.92 MIL/MM3 Hemoglobin 9.8 GM/DL Hematocrit 30.3 % Mean Corpuscular Volume 77.4 FL Mean Corpuscular Hemoglobin 25.1 PG Mean Corpuscular Hemoglobin Concent 32.4 % Red Cell Distribution Width 15.9 % Platelet Count 159 TH/MM3 Mean Platelet Volume 8.8 FL Neutrophils (%) (Auto) 91.7 % Lymphocytes (%) (Auto) 5.5 % Monocytes (%) (Auto) 2.7 % Eosinophils (%) (Auto) 0.0 % Basophils (%) (Auto) 0.1 % Neutrophils # (Auto) 7.7 TH/MM3 Lymphocytes # (Auto) 0.5 TH/MM3 Monocytes # (Auto) 0.2 TH/MM3 Eosinophils # (Auto) 0.0 TH/MM3 Basophils # (Auto) 0.0 TH/MM3 CBC Comment DIFF FINAL Differential Comment Blood Urea Nitrogen 16 MG/DL Creatinine 0.68 MG/DL Random Glucose 131 MG/DL Total Protein 6.1 GM/DL Albumin 2.8 GM/DL Calcium Level 7.2 MG/DL Phosphorus Level 2.0 MG/DL Magnesium Level 2.2 MG/DL Alkaline Phosphatase 51 U/L Aspartate Amino Transf (AST/SGOT) 19 U/L Alanine Aminotransferase (ALT/SGPT) 16 U/L Total Bilirubin 0.2 MG/DL Sodium Level 143 MEQ/L Potassium Level 3.9 MEQ/L Chloride Level 111 MEQ/L Carbon Dioxide Level 26.1 MEQ/L Anion Gap 6 MEQ/L Estimat Glomerular Filtration Rate 89 ML/MIN Protein Corrected Calcium 7.7 MG/DL Free Thyroxine 1.09 NG/DL Thyroid Stimulating Hormone 3rd Gen 0.139 uIU/ML Imaging Last Impressions Chest X-Ray 12/19/17 0016 Signed Impressions: Service Date/Time: Tuesday, December 19, 2017 00:37 - CONCLUSION: Prominence of the right hilar region. This could be from a right perihilar consolidation. This area could be more completely evaluated with a CT examination of the chest. Hermes Samuels MD Objective Remarks GENERAL: Awake alert oriented talkative and cooperative- LETHARGIC TODAY SKIN: Warm and dry. HEAD: Atraumatic. Normocephalic. EYES: Pupils equal and round. No scleral icterus. No injection or drainage. Extractor muscles intact ENT: No nasal bleeding or discharge. Mucous membranes pink and moist. Tongue is midline NECK: Trachea midline. No JVD. Supple CARDIOVASCULAR: Regular rate and rhythm. S1 and S2 no S3 or S4 no heave or thrill or rub or gallop RESPIRATORY: No accessory muscle use. Clear to auscultation. Breath sounds equal bilaterally. GASTROINTESTINAL: Abdomen soft, non-tender, nondistended. Hepatic and splenic margins not palpable. MUSCULOSKELETAL: Extremities without clubbing, cyanosis, or edema. No obvious deformities. NEUROLOGICAL: Awake and alert. No obvious cranial nerve deficits. Motor grossly within normal limits. 4 out of 5 muscle strength in the arms and legs. Normal speech. PSYCHIATRIC: Appropriate mood and affect; insight and judgment ABnormal.- LETHARGIC TODAY Procedures None Medications and IVs Current Medications Acetaminophen (Tylenol Supp) 650 mg ONCE ONCE RECTAL Last administered on 12/19at 02:53; Start 12/19/17 at 00:30; Stop 12/19/17 at 00:31; Status DC Levofloxacin/ Dextrose 150 ml @ 100 mls/hr ONCE ONCE IV Last administered on 12/19/17at 01:09; Start 12/19/17 at 00:30; Stop 12/19/17 at 01:59; Status DC Sodium Chloride 1,000 ml @ 999 mls/hr BOLUS ONCE IV Last administered on 12/19at 01:09; Start 12/19/17 at 00:30; Stop 12/19/17 at 01:30; Status DC Naloxone HCl (Narcan Inj) 0.4 mg ONCE ONCE IV PUSH ; Start 12/19/17 at 00:45; Stop 12/19/17 at 00:46; Status DC Naloxone HCl (Narcan Inj) 0.4 mg ONCE ONCE IV PUSH ; Start 12/19/17 at 00:45; Stop 12/19/17 at 00:46; Status DC Sodium Chloride 1,000 ml @ 100 mls/hr Q10H IV Last administered on 12/19/17at 13:53; Start 12/19/17 at 03:42; Status Future Hold Sodium Chloride (NS Flush) 2 ml UNSCH PRN IV FLUSH FLUSH AFTER USING IV ACCESS ; Start 12/19/17 at 03:45 Sodium Chloride (NS Flush) 2 ml BID IV FLUSH Last administered on 12/21/17at 09: 33; Start 12/19/17 at 09:00 Ondansetron HCl (Zofran Inj) 4 mg Q6H PRN IVP NAUSEA OR VOMITING Last administered on 12/20/17at 09:36; Start 12/19/17 at 03:45 Naloxone HCl (Narcan Inj) 0.4 mg UNSCH PRN IV PUSH SEE LABEL COMMENTS; Start at 03:45; Stop 12/20/17 at 13:59; Status DC Senna/Docusate Sodium (Savanah-Colace) 1 tab BID PO Last administered on at 09:36; Start 12/19/17 at 09:00 Magnesium Hydroxide (Milk Of Magnesia Liq) 30 ml Q12H PRN PO Mild constipation ; Start 12/19/17 at 03:45 Sennosides (Senokot) 17.2 mg Q12H PRN PO Moderate constipation; Start 12/19/17 at 03:45 Bisacodyl (Dulcolax Supp) 10 mg DAILY PRN RECTAL SEVERE CONSITIPATION; Start at 03:45 Lactulose (Lactulose Liq) 30 ml DAILY PRN PO SEVERE CONSITIPATION; Start at 03:45 Pharmacy Profile Note 0 ml @ 0 mls/hr UNSCH OTHER ; Start 12/19/17 at 03:45 Vancomycin/Sodium Chloride 200 ml @ 200 mls/hr Q12H IV ; Start 12/19/17 at 03: 45; Status UNV Piperacillin Sod/ Tazobactam Sod 100 ml @ 200 mls/hr Q6H IV Last administered on 12/21/17at 09:33; Start 12/19/17 at 04:00 Ibuprofen (Motrin) 600 mg Q8H PRN PO Pain/Fever Last administered on 12/19/17at 09:35; Start 12/19/17 at 03:45; Stop 12/19/17 at 10:59; Status DC Atorvastatin Calcium (Lipitor) 10 mg DAILY PO Last administered on 12/21/17at 09 :33; Start 12/19/17 at 09:00 Hydrochlorothiazide (Hydrodiuril) 25 mg DAILY PO ; Start 12/19/17 at 09:00; Stop 12/19/17 at 09:00; Status DC Metoprolol Succinate (Toprol Xl) 50 mg DAILY PO Last administered on 12/21/17at 09:32; Start 12/19/17 at 09:00 Rifaximin (Xifaxan) 550 mg Q12HR PO Last administered on 12/21/17at 09:33; Start 12/19/17 at 09:00 Lisinopril (Prinivil) 2.5 mg DAILY PO ; Start 12/19/17 at 09:00; Stop 12/19/17 at 09:00; Status DC Pantoprazole Sodium (Protonix) 20 mg DAILY PO Last administered on 12/21/17at 09 :33; Start 12/19/17 at 09:00 Vancomycin HCl 1500 mg/Sodium Chloride 515 ml @ 257.5 mls/ hr ONCE ONCE IV Last administered on 12/19/17at 06:45; Start 12/19/17 at 05:00; Stop 12/19/17 at 06:59; Status DC Oseltamivir Phosphate (Tamiflu Liq) 75 mg BID PO Last administered on at 09:30; Start 12/19/17 at 12:00 Aspirin (Ecotrin Ec) 81 mg ONCE ONCE PO Last administered on 12/19/17at 11:38; Start 12/19/17 at 11:00; Stop 12/19/17 at 11:03; Status DC Aspirin (Ecotrin Ec) 81 mg DAILY PO Last administered on 12/21/17at 09:32; Start 12/20/17 at 09:00 Vancomycin/Sodium Chloride 200 ml @ 200 mls/hr Q12H IV Last administered on at 05:49; Start 12/19/17 at 18:00 Miscellaneous Information SPECIFIC LAB TO BE DRAWN:VANCOMYCIN TROUGH DATE TO... ONCE ONCE .XX Last administered on 12/21/17at 05:45; Start 12/21/17 at 05:45; Stop 12/21/17 at 05:46; Status DC Naloxone HCl (Narcan Inj) 0.4 mg UNSCH X1 PRN IV PUSH RESP DEPRESSION OR HYPOTENSION Last administered on 12/19/17at 11:39; Start 12/19/17 at 11:15; Stop 12/22/17 at 11:14 Albuterol/ Ipratropium (Duoneb Neb) 1 ampule Q6HR NEB NEB Last administered on 12/21/17at 09:10; Start 12/19/17 at 11:15 Methylprednisolone Sodium Succinate (SoluMEDROL INJ) 40 mg Q6HR IV PUSH Last administered on 12/21/17at 05:49; Start 12/19/17 at 12:00 Thiamine HCl (Vitamin B1) 500 mg ONCE ONCE PO Last administered on 12/19/17at 19:04; Start 12/19/17 at 17:45; Stop 12/19/17 at 18:17; Status DC Thiamine HCl (Vitamin B1) 100 mg DAILY PO Last administered on 12/21/17at 09:32 ; Start 12/20/17 at 09:00 Oxycodone HCl (Roxicodone) 5 mg Q4H PRN PO PAIN SCALE 3 TO 5 Last administered on 12/21/17at 09:36; Start 12/19/17 at 17:45 Naloxone HCl (Narcan Inj) 0.4 mg UNSCH PRN IV PUSH SEE LABEL COMMENTS; Start at 17:45 Oxycodone HCl (Roxicodone) 10 mg Q4H PRN PO PAIN SCALE 6 TO 10 Last administered on 12/21/17at 00:24; Start 12/19/17 at 17:45 Sodium Chloride 1,000 ml @ 999 mls/hr BOLUS ONCE IV Last administered on 12/19at 18:47; Start 12/19/17 at 17:45; Stop 12/19/17 at 18:45; Status DC Guaifenesin (Mucinex Er) 600 mg BID PO Last administered on 12/21/17at 09:31; Start 12/20/17 at 11:00 Albuterol/ Ipratropium (Duoneb Neb) 1 ampule Q4HR NEB PRN NEB SOB/COUGH; Start 12/20/17 at 10:15 Escitalopram Oxalate (Lexapro) 20 mg DAILY PO Last administered on 12/21/17at 09 :32; Start 12/20/17 at 11:00 Gabapentin (Neurontin) 600 mg TID PO Last administered on 12/21/17 09:33; Start 12/20/17 at 13:00 Lorazepam (Ativan) 0.5 mg BID PRN PO ANXIETY Last administered on 12/21/17 00: 24; Start 12/20/17 at 10:15 Morphine Sulfate (Oramorph Sr) 30 mg Q8H PO Last administered on 12/21/17 04: 11; Start 12/20/17 at 12:00 Quetiapine Fumarate (SEROquel) 100 mg HS PO Last administered on 12/20/17 20: 52; Start 12/20/17 at 21:00 Temazepam (Restoril) 30 mg HS PO Last administered on 12/20/17 20:52; Start at 21:00 Tramadol HCl (Ultram) 50 mg TID PO Last administered on 12/21/17 09:32; Start 12/20/17 at 13:00 Nicotine (Habitrol 14 Mg Patch.24 Hr) 1 patch ONCE ONCE T-DERMAL Last administered on 12/20/17 12:03; Start 12/20/17 at 11:00; Stop 12/20/17 at 11:01 ; Status DC Nicotine (Habitrol 14 Mg Patch.24 Hr) 1 patch DAILY T-DERMAL Last administered on 12/21/17 09:31; Start 12/21/17 at 09:00 Miscellaneous Information 1 DAILY T-DERMAL Last administered on 12/21/17 09:31 ; Start 12/21/17 at 09:00 Potassium Chloride (KCl) 40 meq ONCE ONCE PO Last administered on 12/20/17 12 :02; Start 12/20/17 at 11:00; Stop 12/20/17 at 11:01; Status DC Potassium Chloride (KCl) 40 meq ONCE ONCE PO Last administered on 12/20/17 13 :33; Start 12/20/17 at 12:45; Stop 12/20/17 at 12:52; Status DC Lactobacillus Acidophilus (Lactinex) 1 tab TID PO Last administered on 09:32; Start 12/20/17 at 18:00 A/P Assessment and Plan //Septic shock on admission //Influenza pneumonia. //community Acquired pneumonia = Leukopenia 3.3, tachycardia in the 90s. Temperature 99.9. Systolic blood pressure in the 70s. = Lactate initially 3.1, however and has normalized. -Personally interpreted Hilar prominence on chest x-ray. -Continue broad-spectrum antibiotics due to concern of superinfection given patient's septic shock on admission.. Check BNP. Start Tamiflu. //Chest pain -Could be secondary to pneumonia is demand ischemia from influenza. She with allergy listed to aspirin but has received ibuprofen here without issue. Start aspirin.. We'll order EKGs and troponins. //Hypertension. //Hypotensive on admission. -Patient is been hypotensive with systolic blood pressures to waiting between the 70s-100 systolic..-IMPROVED- RESTART BLOOD PRESSURE MEDS //History of liver cirrhosis. Check ammonia level within normal limits. Continue home medications. //Tobacco use. Will discuss with patient when she is more receptive.- NICODERM PSYCHIATRIC DISORDER- RESTART HOME MEDS CHRONIC PAIN- RESTART HOME MEDS = Prophylaxis. scds Discharge Planning PENDING IMPROVEMENT NEXT 24-48 HOURS Raymundo Rodríguez DO Dec 21, 2017 10:43
[2017-12-21] MEDS: VANCOMYCIN INJ 1,250 MG in SODIUM CHLOR 0.9% 250 ML INJ 250 ML IV SCH (17:44)
[2017-12-21] MEDS: TEMAZEPAM 15 MG CAP PO SCH (20:19)
[2017-12-21] MEDS: QUEtiapine FUMARATE 100 MG TAB PO SCH (20:19)
[2017-12-22] VITALS (8 sets, daily range): BP systolic 147–167; BP diastolic 81–96; PULSE 76–93; RESP 17–18; TEMP 97.9–98.8; O2SAT 92–96
[2017-12-22] MEDS: methylPREDNISolone SOD SUCC 40 MG/1 ML VIAL IV PUSH SCH ×2 (00:35→06:00)
[2017-12-22] MEDS: RESP: ALBUTEROL 2.5 MG/IPRATROPIUM 0.5 MG NEB (SCH) NEB ×4 (03:40→19:53)
[2017-12-22] MEDS: PIPERACIL-TAZO 4.5 GM PREMIX 100 ML IV SCH ×5 (04:00→09:16)
[2017-12-22] MEDS: MORPHINE SULFATE 30 MG CONTROLLED RELEASE TAB PO SCH ×2 (04:02→11:52)
[2017-12-22] MEDS: VANCOMYCIN INJ 1,250 MG in SODIUM CHLOR 0.9% 250 ML INJ 250 ML IV SCH (06:00)
[2017-12-22] MEDS: REMOVE OLD PATCH T-DERMAL SCH (09:00)
[2017-12-22] MEDS: LACTOBACILLUS ACIDOPHILUS TAB PO SCH ×3 (09:13→16:17)
[2017-12-22] MEDS: THIAMINE HCL 100 MG TAB PO SCH (09:14)
[2017-12-22] MEDS: ATORVASTATIN 10 MG TAB PO SCH (09:14)
[2017-12-22] MEDS: DOCUSATE SODIUM 50 MG/SENNA 8.6 MG TAB PO SCH ×2 (09:14→21:07)
[2017-12-22] MEDS: PANTOPRAZOLE SOD 20 MG DELAYED RELEASE TAB PO SCH (09:14)
[2017-12-22] MEDS: GABAPENTIN 300 MG CAP PO SCH ×3 (09:14→16:18)
[2017-12-22] MEDS: RIFAXIMIN 550 MG TAB PO SCH ×2 (09:14→21:00)
[2017-12-22] MEDS: METOPROLOL SUCCINATE 50 MG EXTENDED RELEASE TAB PO SCH (09:14)
[2017-12-22] MEDS: guaiFENesin E.R. 600 MG TAB PO SCH ×2 (09:14→21:07)
[2017-12-22] MEDS: ASPIRIN EC 81 MG TABEC PO SCH (09:14)
[2017-12-22] MEDS: ESCITALOPRAM OXALATE 20 MG TAB PO SCH (09:14)
[2017-12-22] MEDS: traMADol HCL 50 MG TAB PO SCH ×3 (09:14→16:18)
[2017-12-22] MEDS: NICOTINE 14 MG/24 HR PATCH T-DERMAL SCH (09:15)
[2017-12-22] MEDS: OSELTAMIVIR PHOSPHATE 6 MG/ML 60 ML SUSP PO SCH ×2 (09:18→21:08)
[2017-12-22] MEDS: SODIUM CHLORIDE 0.9% FLUSH 10 ML FLUSH IV FLUSH SCH ×2 (09:18→21:00)
--- NOTE | 2017-12-22 10:49 | HHI.FF ---
Face to Face Verification Diagnosis: (1) Sepsis (2) Pneumonia Physical Therapy Order: Evaluate and Treat Home Health Nursing Order: Medical education Nursing assessment with vital signs Instructions: home health nurse for medication management. [employer] Order: To Evaluate: Support services I have seen patient Monika Mckeon on 12/22/17. My clinical findings support the need for the requested home health care services because: Med compliance is questionable I certify that my clinical findings support that this patient is homebound because: Unsafe to leave home unassisted Michael Mckeon MD Dec 22, 2017 10:49
[2017-12-22] MEDS ORDERED: PRED10PA2 PO (10:55)
[2017-12-22] MEDS ORDERED: VENTAER INH (10:55)
[2017-12-22] MEDS ORDERED: predniSONE 20 MG TAB PO ONE (11:00)
[2017-12-22] MEDS ORDERED: HYDROCHLOROTHIAZIDE 25 MG TAB PO ONE (11:00)
--- NOTE | 2017-12-22 12:44 | HHI.PR ---
Subjective Remarks 57-year-old female with a history of hypertension, hyperlipidemia, COPD, tobacco use, cirrhosis, chronic back pain on opioids who presented obtunded last night, with some improvement with im Narcan. History is limited by somnolence. Patient reports a three-day history of shortness of breath, fever, constant, dull left-sided chest pain radiating to the left shoulder. He denies any nausea, vomiting. She says that multiple family members have similar illness over the past week. 12-20 STATES HAS CHRONIC PAIN AND CHRONIC PSYCHIATRIC DISORDERS WANTS HER MEDICATIONS RESTARTED FELICE RN AND PT MORE ALERT TODAY RESTART HOME MEDICATION MUCINEX DUO NEBS INCENTIVE SPIROMETRY NICODERM ANXIETY MEDS 12-21 STILL VERY LETHARGIC-SUSPECT DUE TO HER CHRONIC MEDICATIONS INCREASE ACTIVITY HOPEFULLY HOME TOMORROW UNLESS CULTURES COME BACK INTERESTING DW RN AND PT LESS COUGH = 12/22. Patient says she still was not breathing as well as she should be. Does not feel comfortable going home today. Denies any chest pain, says shortness of breath is improving. Says she feels very weak, does not feel like she go home. Objective Vital Signs Date Time Temp Pulse Resp B/P (MAP) Pulse Ox O2 Delivery O2 Flow Rate FiO2 12/22/17 12:22 97.9 76 17 147/81 (103) 93 12/22/17 10:17 16 12/22/17 08:46 93 Nasal Cannula 2.00 12/22/17 08:02 98.1 79 17 164/88 (113) 95 12/22/17 04:00 97.9 77 18 167/92 (117) 92 12/22/17 04:00 Room Air 12/22/17 00:00 Room Air 12/22/17 00:00 98.3 76 18 163/96 (118) 94 12/21/17 20:04 95 Nasal Cannula 2.00 12/21/17 20:00 98.4 92 18 126/89 (101) 91 12/21/17 20:00 Room Air 12/21/17 16:03 98.6 88 20 139/80 (99) 92 I/O 12/21/17 12/21/17 12/21/17 12/22/17 12/22/17 12/22/17 07:00 15:00 23:00 07:00 15:00 23:00 Intake Total 100 ml 580 ml Balance 100 ml 580 ml Intake Oral 480 ml IV Total 100 ml 100 ml # Voids 1 3 3 # Bowel Movements 1 Result Diagram: 12/21/1745 12/21/1745 Objective Remarks GENERAL: Patient lying in bed. Sleeping, wakes up for exam. Alert and oriented 3. SKIN: Warm and dry. HEAD: Normocephalic. EYES: No scleral icterus. No injection or drainage. NECK: Supple, trachea midline. No JVD. CARDIOVASCULAR: Regular rate and rhythm without murmurs, gallops, or rubs. RESPIRATORY: Breath sounds equal bilaterally. No accessory muscle use. GASTROINTESTINAL: Abdomen soft, non-tender, nondistended. MUSCULOSKELETAL: No cyanosis, or edema. BACK: Nontender without obvious deformity. No CVA tenderness. A/P Assessment and Plan 12/22 Says she continues with some shortness of breath, generalized weakness unable to go home. We will taper steroids, taper narcotics. May be discharged home tomorrow. Stop antibiotics. Continue Tamiflu. We will repeat evaluate with PT. Home oxygen walk test pending. //Septic shock on admission //Influenza pneumonia. //community Acquired pneumonia = Leukopenia 3.3, tachycardia in the 90s. Temperature 99.9. Systolic blood pressure in the 70s. = Lactate initially 3.1, however and has normalized. -Personally interpreted Hilar prominence on chest x-ray. -Continue broad-spectrum antibiotics due to concern of superinfection given patient's septic shock on admission.. Check BNP. Start Tamiflu. //Chest pain -Could be secondary to pneumonia is demand ischemia from influenza. She with allergy listed to aspirin but has received ibuprofen here without issue. Start aspirin.. We'll order EKGs and troponins. //Hypertension. //Hypotensive on admission. -Patient is been hypotensive with systolic blood pressures to waiting between the 70s-100 systolic..-IMPROVED- RESTART BLOOD PRESSURE MEDS //History of liver cirrhosis. Check ammonia level within normal limits. Continue home medications. //Tobacco use. Will discuss with patient when she is more receptive.- NICODERM PSYCHIATRIC DISORDER- RESTART HOME MEDS CHRONIC PAIN- RESTART HOME MEDS = Prophylaxis. scds Discharge Planning Likely discharge home tomorrow on steroid taper. PT reevaluation today. Michael Mckeon MD Dec 22, 2017 12:43
[2017-12-22] MEDS: MORPHINE SULFATE 15 MG CONTROLLED RELEASE TAB PO SCH ×2 (14:00→21:08)
[2017-12-22] MEDS: LORazepam 0.5 MG TAB PO PRN (19:38)
[2017-12-22] MEDS ORDERED: MORPHINE SULFATE 30 MG CONTROLLED RELEASE TAB PO SCH (20:00)
[2017-12-22] MEDS: TEMAZEPAM 15 MG CAP PO SCH (21:07)
[2017-12-22] MEDS: predniSONE 20 MG TAB PO SCH (21:07)
[2017-12-22] MEDS: QUEtiapine FUMARATE 100 MG TAB PO SCH (21:08)
[2017-12-23] VITALS: BP 160/82; PULSE 71; RESP 18; TEMP 97.8; O2SAT 93
[2017-12-23] MEDS: RESP: ALBUTEROL 2.5 MG/IPRATROPIUM 0.5 MG NEB (SCH) NEB ×2 (03:37→09:00)
[2017-12-23 04:00] VITALS: BP 165/100; PULSE 68; RESP 18; TEMP 97.9; O2SAT 94
[2017-12-23] MEDS: MORPHINE SULFATE 15 MG CONTROLLED RELEASE TAB PO SCH (05:38)
[2017-12-23] MEDS ORDERED: PHARMACY ORDERED LAB ONE (05:45)
[2017-12-23 06:00] VITALS: BP 158/90
[2017-12-23 07:56] LABS: AUTOMATED NEUTROPHIL # 5.6 TH/MM3 (1.8-7.7); BASOPHIL % 0.2 % (0.0-2.0); HEMATOCRIT 34.4 % (35.0-46.0); HEMOGLOBIN 11.4 GM/DL (11.6-15.3); LYMPH % 17.2 % (9.0-44.0); LYMPHOCYTE # 1.3 TH/MM3 (1.0-4.8); MEAN CELL VOLUME 76.6 FL (80.0-100.0); MEAN CORPUSCULAR HEMOGLOBIN 25.4 PG (27.0-34.0); MEAN CORPUSCULAR HGB CONC 33.1 % (32.0-36.0); MEAN PLATELET VOLUME 8.7 FL (7.0-11.0); MONO % 9.4 % (0.0-8.0); MONOCYTE # 0.7 TH/MM3 (0-0.9); NEUT % 73.2 % (16.0-70.0); PLATELET COUNT 247 TH/MM3 (150-450); RED BLOOD COUNT 4.49 MIL/MM3 (4.00-5.30); WHITE BLOOD COUNT 7.7 TH/MM3 (4.0-11.0)
[2017-12-23 08:00] VITALS: BP 174/88; PULSE 75; RESP 20; TEMP 98.1; O2SAT 94
[2017-12-23 08:26] LABS: ALKALINE PHOSPHATASE 59 U/L (45-117); ALT (GPT) 16 U/L (10-53); AST (GOT) 34 U/L (15-37); BICARBONATE 28.2 MEQ/L (21.0-32.0); BLOOD UREA NITROGEN 12 MG/DL (7-18); CALCIUM 8.3 MG/DL (8.5-10.1); CHLORIDE 105 MEQ/L (98-107); GLOMERULAR FILTRATION RATE 103 ML/MIN (>89); GLUCOSE,RANDOM 88 MG/DL (74-106); MAGNESIUM 2.2 MG/DL (1.5-2.5); PHOSPHORUS 2.2 MG/DL (2.5-4.9); SODIUM (NA) 139 MEQ/L (136-145); TOTAL BILIRUBIN ADULT 0.6 MG/DL (0.2-1.0); TOTAL PROTEIN 6.7 GM/DL (6.4-8.2)
[2017-12-23 08:42] LABS: LYMPHOCYTES 26 % (9-44); METAMYELOCYTES 1 % (0-1); MONOCYTES 1 % (0-8); MYELOCYTES 4 % (0-0); NEUTROPHIL # MANUAL DIFF 5.6 TH/MM3 (1.8-7.7); POLYS (SEG NEUTROPHILS) 68 % (16-70)
[2017-12-23 08:43] LABS: OVALOCYTES 1+ (NORMAL)
[2017-12-23] MEDS: REMOVE OLD PATCH T-DERMAL SCH (09:00)
[2017-12-23] MEDS: DOCUSATE SODIUM 50 MG/SENNA 8.6 MG TAB PO SCH (09:00)
[2017-12-23] MEDS: SODIUM CHLORIDE 0.9% FLUSH 10 ML FLUSH IV FLUSH SCH (09:00)
[2017-12-23] MEDS: ESCITALOPRAM OXALATE 20 MG TAB PO SCH (09:00)
[2017-12-23] MEDS: guaiFENesin E.R. 600 MG TAB PO SCH (09:00)
[2017-12-23] MEDS: OSELTAMIVIR PHOSPHATE 6 MG/ML 60 ML SUSP PO SCH (09:00)
[2017-12-23 09:03] VITALS: O2SAT 96
[2017-12-23] MEDS: GABAPENTIN 300 MG CAP PO SCH ×2 (09:17→12:01)
[2017-12-23] MEDS: LACTOBACILLUS ACIDOPHILUS TAB PO SCH ×2 (09:18→12:01)
[2017-12-23] MEDS: PANTOPRAZOLE SOD 20 MG DELAYED RELEASE TAB PO SCH (09:18)
[2017-12-23] MEDS: LORazepam 0.5 MG TAB PO PRN (09:19)
[2017-12-23] MEDS: ATORVASTATIN 10 MG TAB PO SCH (09:19)
[2017-12-23] MEDS: traMADol HCL 50 MG TAB PO SCH ×2 (09:20→12:00)
[2017-12-23] MEDS: predniSONE 20 MG TAB PO SCH (09:20)
[2017-12-23] MEDS: THIAMINE HCL 100 MG TAB PO SCH (09:21)
[2017-12-23] MEDS: METOPROLOL SUCCINATE 50 MG EXTENDED RELEASE TAB PO SCH (09:21)
[2017-12-23] MEDS: RIFAXIMIN 550 MG TAB PO SCH (09:21)
[2017-12-23] MEDS: ASPIRIN EC 81 MG TABEC PO SCH (09:22)
[2017-12-23] MEDS: NICOTINE 14 MG/24 HR PATCH T-DERMAL SCH (09:22)
[2017-12-23] MEDS ORDERED: OSEL75 PO (10:51)
[2017-12-23] MEDS ORDERED: LEVO750T3 PO (10:51)
[2017-12-23] MEDS ORDERED: MORP1TAB25 PO (11:47)
--- NOTE | 2017-12-23 11:49 | HHI.PR ---
Subjective Remarks Patient says she is feeling better today, feels like going home. Reports shortness of breath much improved. Denies any chest pain. Objective Vital Signs Date Time Temp Pulse Resp B/P (MAP) Pulse Ox O2 Delivery O2 Flow Rate FiO2 12/23/17 09:03 96 12/23/17 08:00 98.1 75 20 174/88 (116) 94 12/23/17 07:00 Room Air 12/23/17 06:45 17 12/23/17 06:00 158/90 (112) 12/23/17 04:00 97.9 68 18 165/100 (121) 94 12/23/17 00:00 97.8 71 18 160/82 (108) 93 12/22/17 21:10 Room Air 12/22/17 20:00 98.3 93 18 158/85 (109) 93 12/22/17 19:52 96 12/22/17 17:05 16 12/22/17 16:17 98.8 76 18 164/88 (113) 93 12/22/17 12:55 16 12/22/17 12:22 97.9 76 17 147/81 (103) 93 I/O 12/22/17 12/22/17 12/22/17 12/23/17 12/23/17 12/23/17 06:59 14:59 22:59 06:59 14:59 22:59 Intake Total 600 ml Balance 600 ml Intake Oral 600 ml # Voids 3 3 # Bowel Movements 1 2 Result Diagram: 12/23/17 0715 12/23/17 0715 Objective Remarks GENERAL: Patient lying in bed. Awake. Breathing comfortably. Alert and oriented 3. SKIN: Warm and dry. HEAD: Normocephalic. EYES: No scleral icterus. No injection or drainage. NECK: Supple, trachea midline. No JVD. CARDIOVASCULAR: Regular rate and rhythm without murmurs, gallops, or rubs. RESPIRATORY: Breath sounds equal bilaterally. No accessory muscle use. GASTROINTESTINAL: Abdomen soft, non-tender, nondistended. MUSCULOSKELETAL: No cyanosis, or edema. BACK: Nontender without obvious deformity. No CVA tenderness. A/P Assessment and Plan 12/23. She is feeling better. She thinks lower dose of morphine has improved her breathing. She will go home on twice daily morphine instead of 3 times daily. 12/22 Says she continues with some shortness of breath, generalized weakness unable to go home. We will taper steroids, taper narcotics. May be discharged home tomorrow. Stop antibiotics. Continue Tamiflu. We will repeat evaluate with PT. Home oxygen walk test pending. //Septic shock on admission //Influenza pneumonia. //community Acquired pneumonia = Leukopenia 3.3, tachycardia in the 90s. Temperature 99.9. Systolic blood pressure in the 70s. = Lactate initially 3.1, however and has normalized. -Personally interpreted Hilar prominence on chest x-ray. -Continue broad-spectrum antibiotics due to concern of superinfection given patient's septic shock on admission.. Check BNP. Start Tamiflu. //Chest pain -Could be secondary to pneumonia is demand ischemia from influenza. She with allergy listed to aspirin but has received ibuprofen here without issue. Start aspirin.. We'll order EKGs and troponins. //Hypertension. //Hypotensive on admission. -Patient is been hypotensive with systolic blood pressures to waiting between the 70s-100 systolic..-IMPROVED- RESTART BLOOD PRESSURE MEDS //History of liver cirrhosis. Check ammonia level within normal limits. Continue home medications. //Tobacco use. Cessation Counseling provided today. PSYCHIATRIC DISORDER- RESTART HOME MEDS CHRONIC PAIN- RESTART HOME MEDS = Prophylaxis. scds Discharge Planning Discharge home today on steroid taper, reduced dose of morphine. She says she will stop smoking. Michael Mckeon MD Dec 23, 2017 11:49
--- NOTE | 2017-12-23 11:53 | HHI.DS ---
Discharge Summary Admission Date Dec 19, 2017 at 03:40 Discharge Date: Dec 23, 2017 Admitting Diagnosis Sepsis (1) Influenza A ICD Code: J10.1 - Influenza due to other identified influenza virus with other respiratory manifestations (2) Pneumonia ICD Code: J18.9 - Pneumonia Status: Acute (3) Sepsis ICD Code: A41.9 - Sepsis Status: Acute Procedures None Brief History - From Admission Patient seen this morning around 9 AM. 57-year-old female with a history of hypertension, hyperlipidemia, COPD, tobacco use, cirrhosis, chronic back pain on opioids who presented obtunded last night, with some improvement with im Narcan. History is limited by somnolence. Patient reports a three-day history of shortness of breath, fever, constant, dull left-sided chest pain radiating to the left shoulder. He denies any nausea, vomiting. She says that multiple family members have similar illness over the past week. CBC/BMP: 12/23/17 0715 12/23/17 0715 Significant Findings Laboratory Tests Test 12/21/17 05:45 12/23/17 07:15 Red Blood Count 3.92 MIL/MM3 (4.00-5.30) Hemoglobin 9.8 GM/DL (11.6-15.3) 11.4 GM/DL (11.6-15.3) Hematocrit 30.3 % (35.0-46.0) 34.4 % (35.0-46.0) Mean Corpuscular Volume 77.4 FL (80.0-100.0) 76.6 FL (80.0-100.0) Mean Corpuscular Hemoglobin 25.1 PG (27.0-34.0) 25.4 PG (27.0-34.0) Neutrophils (%) (Auto) 91.7 % (16.0-70.0) 73.2 % (16.0-70.0) Lymphocytes (%) (Auto) 5.5 % (9.0-44.0) Lymphocytes # (Auto) 0.5 TH/MM3 (1.0-4.8) Random Glucose 131 MG/DL (74-106) Total Protein 6.1 GM/DL (6.4-8.2) Albumin 2.8 GM/DL (3.4-5.0) 3.0 GM/DL (3.4-5.0) Calcium Level 7.2 MG/DL (8.5-10.1) 8.3 MG/DL (8.5-10.1) Phosphorus Level 2.0 MG/DL (2.5-4.9) 2.2 MG/DL (2.5-4.9) Chloride Level 111 MEQ/L (98-107) Protein Corrected Calcium 7.7 MG/DL (8.5-10.1) Thyroid Stimulating Hormone 3rd Gen 0.139 uIU/ML (0.358-3.740) Vancomycin Level Trough 12.2 MCG/ML (5.0-10.0) Monocytes (%) (Auto) 9.4 % (0.0-8.0) Myelocytes 4 % (0-0) Ovalocytes 1+ (NORMAL) Imaging Last Impressions Chest X-Ray 12/19/17 0016 Signed Impressions: Service Date/Time: Tuesday, December 19, 2017 00:37 - CONCLUSION: Prominence of the right hilar region. This could be from a right perihilar consolidation. This area could be more completely evaluated with a CT examination of the chest. Hermes Samuels MD PE at Discharge GENERAL: Awake alert oriented talkative and cooperative- LETHARGIC TODAY SKIN: Warm and dry. HEAD: Atraumatic. Normocephalic. EYES: Pupils equal and round. No scleral icterus. No injection or drainage. Extractor muscles intact ENT: No nasal bleeding or discharge. Mucous membranes pink and moist. Tongue is midline NECK: Trachea midline. No JVD. Supple CARDIOVASCULAR: Regular rate and rhythm. S1 and S2 no S3 or S4 no heave or thrill or rub or gallop RESPIRATORY: No accessory muscle use. Clear to auscultation. Breath sounds equal bilaterally. GASTROINTESTINAL: Abdomen soft, non-tender, nondistended. Hepatic and splenic margins not palpable. MUSCULOSKELETAL: Extremities without clubbing, cyanosis, or edema. No obvious deformities. NEUROLOGICAL: Awake and alert. No obvious cranial nerve deficits. Motor grossly within normal limits. 4 out of 5 muscle strength in the arms and legs. Normal speech. PSYCHIATRIC: Appropriate mood and affect; insight and judgment ABnormal.- LETHARGIC TODAY Hospital Course Patient presented with septic shock on admission, lactic acid initially 3.1, however improved with treatment. Chest x-ray showed right. Hilar consolidation. Nasal swab positive for influenza type A. Patient improved with broad-spectrum antibiotics, Tamiflu, IV hydration. She was counseled on smoking cessation, says she will quit smoking. Also, chronic morphine was decreased from 30 mg extended release 3 times daily to 30 mg extended release once daily, which will help prevent pneumonia. Patient was feeling much better , and will be discharged home on prednisone taper, Levaquin to complete treatment course, as well as Tamiflu to complete treatment course. He'll need a follow-up with primary care, received repeat chest x-ray as outpatient. For problem-based summary from most recent progress note, please see below. 12/23. She is feeling better. She thinks lower dose of morphine has improved her breathing. She will go home on twice daily morphine instead of 3 times daily. 12/22 Says she continues with some shortness of breath, generalized weakness unable to go home. We will taper steroids, taper narcotics. May be discharged home tomorrow. Stop antibiotics. Continue Tamiflu. We will repeat evaluate with PT. Home oxygen walk test pending. //Septic shock on admission //Influenza pneumonia. //community Acquired pneumonia = Leukopenia 3.3, tachycardia in the 90s. Temperature 99.9. Systolic blood pressure in the 70s. = Lactate initially 3.1, however and has normalized. -Personally interpreted Hilar prominence on chest x-ray. -Continue broad-spectrum antibiotics due to concern of superinfection given patient's septic shock on admission.. Check BNP. Start Tamiflu. //Chest pain -Could be secondary to pneumonia is demand ischemia from influenza. She with allergy listed to aspirin but has received ibuprofen here without issue. Start aspirin.. We'll order EKGs and troponins. //Hypertension. //Hypotensive on admission. -Patient is been hypotensive with systolic blood pressures to waiting between the 70s-100 systolic..-IMPROVED- RESTART BLOOD PRESSURE MEDS //History of liver cirrhosis. Check ammonia level within normal limits. Continue home medications. //Tobacco use. Cessation Counseling provided today. PSYCHIATRIC DISORDER- RESTART HOME MEDS CHRONIC PAIN- RESTART HOME MEDS = Prophylaxis. scds Pt Condition on Discharge: Good Discharge Disposition: Disch w/ Home Health Serv Discharge Time: > 30 minutes Discharge Instructions DIET: Follow Instructions for: Heart Healthy Diet Activities you can perform: Regular-No Restrictions Follow up Referrals: PCP Follow-up - 1 Week with Laurent Ackerman M.d. PCP Follow-up @ [facility] PCP Follow-up @ [facility] New Medications: Albuterol 18 GM Inh (Ventolin Hfa 18 GM Inh) 90 Mcg/Act Aer 2 PUFF INH Q4-6H PRN for SHORTNESS OF BREATH, #1 INHALER 0 Refills Levofloxacin (Levofloxacin) 750 Mg Tablet 750 MG PO DAILY for Infection, #3 TAB 0 Refills Oseltamivir (Tamiflu) 75 Mg Cap 75 MG PO BID for Mgmt Viral Infection for 2 Days, #4 CAP 0 Refills Prednisone (48) 10 mg tab Dose Pack (Prednisone (48) 10 mg tab Dose Pack) 10 Mg Dspk 10 MG PO DIRECTED for Inflammation, #1 DSPK 0 Refills Changed Medications: Morphine ER (Morphine ER) 30 Mg Tab 30 MG PO BID for Pain Management for 30 Days, #60 TAB 0 Refills (Changed from: Q8H) Continued Medications: Atorvastatin (Atorvastatin) 10 Mg Tab 10 MG PO DAILY for Cholesterol Management, #30 TAB 0 Refills Escitalopram (Escitalopram) 20 Mg Tab 20 MG PO DAILY, #30 TAB 0 Refills Gabapentin (Gabapentin) 600 Mg Tab 600 MG PO TID, #90 TAB 0 Refills Hydrochlorothiazide (Hydrochlorothiazide) 25 Mg Tab 25 MG PO DAILY, #30 TAB 0 Refills Lisinopril (Lisinopril) 2.5 Mg Tab 2.5 MG PO DAILY, #30 TAB 0 Refills Lorazepam (Lorazepam) 0.5 Mg Tab 0.5 MG PO BID PRN for ANXIETY, TAB 0 Refills Metoprolol Succinate ER 24 HR (Metoprolol Succinate ER 24 HR) 50 Mg Tab 50 MG PO DAILY, #30 TAB 0 Refills Omeprazole (Omeprazole) 20 Mg Tab 20 MG PO DAILY, #30 TAB 0 Refills Quetiapine (Quetiapine) 100 Mg Tab 100 MG PO HS, #30 TAB 0 Refills Rifaximin (Xifaxan) 550 Mg Tab 550 MG PO Q12HR for Hepatic encephalopathy, #60 TAB 0 Refills Temazepam (Temazepam) 30 Mg Cap 30 MG PO HS for INSOMNIA, #30 CAP 0 Refills Tramadol (Tramadol) 50 Mg Tab 50 MG PO TID for PAIN, TAB 0 Refills Michael Mckeon MD Dec 23, 2017 11:53
== END 2017-12-23 12:14 | disposition home health service (06) | DRG 871 ==
LOC: NEPC 23:58 → NEDA 12-19 03:40 → NEDH 12-19 11:09 → N04B 12-19 12:37
PROVIDERS: ADMIT Internal Medicine; ATTEND Internal Medicine
PROC: 06HY33Z Insertion of Infusion Device into Lower Vein, Percutaneous Approach (ICD-10-PCS; principal; 2017-12-19)
DX: A41.9 Sepsis, unspecified organism (principal); R65.21 Severe sepsis with septic shock; J10.08 Influenza due to other identified influenza virus with other specified pneumonia; J44.0 Chronic obstructive pulmonary disease with (acute) lower respiratory infection; I10 Essential (primary) hypertension; K74.60 Unspecified cirrhosis of liver; E78.5 Hyperlipidemia, unspecified; M79.7 Fibromyalgia; K21.9 Gastro-esophageal reflux disease without esophagitis; G47.00 Insomnia, unspecified; G47.30 Sleep apnea, unspecified; M19.90 Unspecified osteoarthritis, unspecified site; F17.210 Nicotine dependence, cigarettes, uncomplicated; F32.9 Major depressive disorder, single episode, unspecified; F41.0 Panic disorder [episodic paroxysmal anxiety]; Z88.2 Allergy status to sulfonamides; Z88.6 Allergy status to analgesic agent
CPT/HCPCS: 36556; 36600; 71045; 80048; 80053; 80202; 80307; 81001; 82140; 82533; 82805; 83036; 83605; 83690; 83735; 83880; 84100; 84155; 84439; 84443; 84484; 85007; 85025; 85027; 85610; 87040; 87804; 93005; 94150; 94618; 94640; 94664; 94667; 94668; 96365; 96366; J1956; J2310; J2405; J2543; J2920; J3370; J7030; J7040; J7050; J7512